=== PATIENT | female | born 1960 | race Caucasian/White ===

== ENCOUNTER 2017-11-14 21:19 | Emergency (ER) | payer OTHER ==
[~2017-11-14] VITALS: Ht 157.5 cm; Wt 90.7 kg
--- NOTE | ~2017-11-14 | EKG ---
[place] [address] ELECTROCARDIOGRAM REPORT Name: KAY SIFUENTES [id number] Admission: 11/14/17 Attend Phys: Discharge: 11/14/17 Date of : 58 Report #: [id number] THIS REPORT FOR: //name// [facility] ED Test Date: 2017-11-14 Test Time: 21:49:45 Pat Name: KAY SIFUENTES Department: Room: Gender: F Ceramic Research Engineer: HOA Jang : 1960 Requested By: Marisa Sharma Order Number: [id number] MD: Measurements Intervals [place] Rate: 103 P: 23 NM: 135 QRS: 39 QRSD: 78 T: 3 QT: 326 QTc: 427 Interpretive Statements Sinus tachycardia Consider right atrial enlargement Compared to ECG 10/21/2017 03:53:14 Sinus rhythm no longer present T-wave abnormality no longer present [email or web address] By: [id number] Epiphany EpiphanyMD /EPI
[~2017-11-14 21:19] MED LIST: ACETAMINOPHEN500 M1 PO; AMBIEN 5 MG TABL5 M1 PO; AMITRIPTYLINE H25 M2 PO; AMITRIPTYLINE H50 M4 PO; ANASPAZ0.125 MG SL; APAP500 PO; CYMBALTA60 MG PO; EPIPEN 2-P0.3 MG/0.3 IM; HYDROCHLOROTHIA25 M2 PO; ONDANSETRON HCL4 M2 PO; ONDANSETRON ODT4 MG; OXYCODONE HCL 55 MG PO; OXYCODONE HCL5 MG PO; OXYCONTIN10 M1 PO; PERCOCET 5-3251 EACH PO; PREDNISONE50 MG PO; PROTONIX40 M1 PO; PROZAC20 MG PO; TOPROL XL50 MG PO; TRANSDERM-SCOP1 EACH TRANSDERM; TRAZODONE HCL100 MG PO; ZANAFLEX4 MG PO
[2017-11-14] MEDS ORDERED: ATIVAN1 MG PO (21:35)
[2017-11-14 21:55] LABS: ABSOLUTE BASOPHILS 0.2 thou/uL (0.0-0.2); ABSOLUTE EOSINOPHILS 0.1 thou/uL (0.0-0.7); ABSOLUTE LYMPHOCYTES 2.5 thou/uL (0.8-5.3); ABSOLUTE MONOCYTES 0.7 thou/uL (0.0-1.2); ABSOLUTE NEUTROPHILS 9.1 thou/uL (1.6-8.1); BASOPHILS 1.2 %; EOSINOPHILS 0.8 %; HEMATOCRIT 47.3 % (37.0-47.0); MCH 29.9 pg (26.0-34.0); MCHC 33.7 g/dL (28.0-37.0); MCV 88.7 fL (80.0-100.0); MONOCYTES 5.9 %; NUCLEATED RBCS 0 /100WBC; PLATELET COUNT* 584 thou/uL (150-400); POLYS 72.1 %; RBC 5.33 mil/uL (4.20-5.00); RDW-CV 13.8 % (10.5-14.5); WBC 12.6 thou/uL (4.0-11.0)
[2017-11-14 22:00] LABS: ANION GAP 14 mmol/L (7-16); BUN 32 mg/dL (7-18); CALCIUM 10.4 mg/dL (8.5-10.1); CHLORIDE 98 mmol/L (98-107); CO2 28 mmol/L (21-32); CREATININE 1.4 mg/dL (0.6-1.3); GLUCOSE 212 mg/dL (70-99); POTASSIUM 3.9 mmol/L (3.5-5.1); SODIUM 140 mmol/L (136-145)
[2017-11-14 22:07] LABS: ALBUMIN 4.3 g/dL (3.4-5.0); ALKALINE PHOSPHATASE 172 U/L (46-116); LIPASE 96 U/L (73-393); SGOT 14 U/L (15-37); SGPT 26 U/L (30-65); TOTAL BILIRUBIN 0.4 mg/dL (<0.1-1.0); TROPONIN-I LEVEL <0.06 ng/mL (<0.06)
[2017-11-14 23:23] LABS: URINE BILIRUBIN NEGATIVE (Negative); URINE BLOOD NEGATIVE (Negative); URINE CLARITY CLEAR; URINE COLOR YELLOW; URINE GLUCOSE-RANDOM NEGATIVE (Negative); URINE KETONES NEGATIVE (Negative); URINE NITRITE-REFLEX NEGATIVE (Negative); URINE PROTEIN NEGATIVE (Negative); URINE SPECIFIC GRAVITY >= 1.030 (1.005-1.030); URINE UROBILINOGEN 0.2 E.U./dl (0.2-1.0)
[2017-11-14 23:24] LABS: URINE LEUKOCYTES-REFLEX 2+ (Negative)
[2017-11-14] MEDS ORDERED: PHENERGAN 25 MG25 M1 PO (23:34)
[2017-11-14] MEDS ORDERED: PHENERGAN25 M1 RECTAL (23:34)
[2017-11-14 23:41] LABS: CASTS None Seen /LPF (None Seen); CRYSTALS None Seen /LPF (None Seen); MUCUS 0-3 Light strn/LPF (None Seen); SQUAMOUS >10 Many /LPF (0-3)
[2017-11-14 23:42] LABS: URINE RBC None Seen /HPF (0-2)
[2017-11-14 23:48] VITALS: BP 129/63
== END 2017-11-14 23:49 | disposition home or self-care (01) ==
LOC: M.ERS 21:19
PROVIDERS: Personal Emergency Response Attendant
DX: K83.4 Spasm of sphincter of Oddi (principal); F32.9 Major depressive disorder, single episode, unspecified; E11.9 Type 2 diabetes mellitus without complications; E78.5 Hyperlipidemia, unspecified; Z90.49 Acquired absence of other specified parts of digestive tract; Z88.8 Allergy status to other drugs, medicaments and biological substances

== ENCOUNTER 2017-11-16 12:26 | Emergency (ER) | payer OTHER ==
[~2017-11-16] VITALS: Ht 157.5 cm; Wt 90.7 kg
[~2017-11-16 12:26] MED LIST changes: +ATIVAN1 MG PO; +PHENERGAN 25 MG25 M1 PO; +PHENERGAN25 M1 RECTAL
[2017-11-16 12:53] LABS: ABSOLUTE BASOPHILS 0.1 thou/uL (0.0-0.2); ABSOLUTE LYMPHOCYTES 1.6 thou/uL (0.8-5.3); ABSOLUTE MONOCYTES 0.3 thou/uL (0.0-1.2); ABSOLUTE NEUTROPHILS 9.8 thou/uL (1.6-8.1); BASOPHILS 0.8 %; EOSINOPHILS 0.4 %; HEMATOCRIT 44.7 % (37.0-47.0); LYMPHOCYTES 13.6 %; MCH 29.7 pg (26.0-34.0); MCHC 33.5 g/dL (28.0-37.0); MCV 88.7 fL (80.0-100.0); MONOCYTES 2.7 %; MPV 6.8 fl. (7.2-11.1); NUCLEATED RBCS 0 /100WBC; POLYS 82.5 %; RBC 5.04 mil/uL (4.20-5.00); RDW-CV 13.8 % (10.5-14.5); WBC 11.9 thou/uL (4.0-11.0)
[2017-11-16 12:54] LABS: PLATELET COUNT* 509 thou/uL (150-400)
[2017-11-16 13:03] LABS: ANION GAP 11 mmol/L (7-16); BUN 18 mg/dL (7-18); CALCIUM 10.1 mg/dL (8.5-10.1); CHLORIDE 98 mmol/L (98-107); CO2 29 mmol/L (21-32); CREATININE 1.1 mg/dL (0.6-1.3); GLUCOSE 214 mg/dL (70-99); POTASSIUM 3.8 mmol/L (3.5-5.1); SODIUM 138 mmol/L (136-145)
[2017-11-16 13:10] LABS: ALBUMIN 3.9 g/dL (3.4-5.0); ALKALINE PHOSPHATASE 134 U/L (46-116); LIPASE 80 U/L (73-393); SGOT 17 U/L (15-37); SGPT 25 U/L (30-65); TOTAL BILIRUBIN 0.5 mg/dL (<0.1-1.0); TOTAL PROTEIN 8.5 g/dL (6.4-8.2); TROPONIN-I LEVEL <0.06 ng/mL (<0.06)
[2017-11-16 15:12] LABS: URINE BILIRUBIN NEGATIVE (Negative); URINE BLOOD NEGATIVE (Negative); URINE CLARITY CLEAR; URINE COLOR YELLOW; URINE GLUCOSE-RANDOM NEGATIVE (Negative); URINE KETONES NEGATIVE (Negative); URINE LEUKOCYTES-REFLEX TRACE (Negative); URINE NITRITE-REFLEX NEGATIVE (Negative); URINE PROTEIN NEGATIVE (Negative); URINE UROBILINOGEN 0.2 E.U./dl (0.2-1.0)
[2017-11-16 15:33] LABS: CASTS None Seen /LPF (None Seen); CRYSTALS None Seen /LPF (None Seen); SQUAMOUS >10 Many /LPF (0-3)
[2017-11-16 15:34] LABS: URINE RBC None Seen /HPF (0-2)
[2017-11-16] MEDS ORDERED: BACTRIM DS TAB1 EACH PO (15:42)
[2017-11-16 16:01] VITALS: BP 188/104
--- NOTE | 2017-11-17 15:21 | EKG ---
[place] [address] ELECTROCARDIOGRAM REPORT Name: KAY SIFUENTES Room: [facility]#: [id number] Admission: 11/16/17 Attend Phys: Discharge: 11/16/17 Date of : 58 Report #: [id number] THIS REPORT FOR: //name// [facility] ED Test Date: 2017-11-16 Test Time: 13:03:59 Pat Name: KAY CHENEYARMIN Department: Room: Gender: F Lusterer: Suhail SAMUELS : 1960 Requested By: Jayde Hoffmann Order Number: [id number] MD: Deshawn Guerrero Measurements Intervals [place] Rate: 93 P: 21 PA: 129 QRS: 28 QRSD: 80 T: 2 QT: 371 QTc: 462 Interpretive Statements Sinus rhythm Compared to ECG 11/14/2017 21:49:45 Sinus tachycardia no longer present Electronically Signed On 11-17-2017 15:21:30 [employer] by Deshawn Guerrero [email or web address] <ELECTRONICALLY SIGNED> By: Deshawn Guerrero MD, [facility] 11/17/17 1521 1303 130 Deshawn Guerrero MD, FACC /EPI
[2017-11-17] MEDS ORDERED: PROMS25 WY RECTAL (21:58)
== END 2017-11-16 16:02 | disposition home or self-care (01) ==
LOC: M.ERS 12:26
PROVIDERS: Nurse Practitioner Family
DX: N39.0 Urinary tract infection, site not specified (principal); R11.2 Nausea with vomiting, unspecified; R10.13 Epigastric pain; F32.9 Major depressive disorder, single episode, unspecified; E11.9 Type 2 diabetes mellitus without complications; E78.5 Hyperlipidemia, unspecified; Z90.49 Acquired absence of other specified parts of digestive tract; Z88.8 Allergy status to other drugs, medicaments and biological substances

== ENCOUNTER 2017-11-17 17:44 | Emergency (ER) | payer OTHER ==
[~2017-11-17] VITALS: Ht 157.5 cm; Wt 90.7 kg
[~2017-11-17 17:44] MED LIST changes: +BACTRIM DS TAB1 EACH PO
[2017-11-17 20:21] LABS: ABSOLUTE BASOPHILS 0.1 thou/uL (0.0-0.2); ABSOLUTE LYMPHOCYTES 1.5 thou/uL (0.8-5.3); ABSOLUTE MONOCYTES 0.4 thou/uL (0.0-1.2); ABSOLUTE NEUTROPHILS 9.5 thou/uL (1.6-8.1); BASOPHILS 0.8 %; EOSINOPHILS 0.1 %; HEMOGLOBIN 14.2 gm/dL (12.0-15.0); LYMPHOCYTES 12.9 %; MCHC 33.9 g/dL (28.0-37.0); MCV 88.5 fL (80.0-100.0); MONOCYTES 3.3 %; MPV 6.7 fl. (7.2-11.1); NUCLEATED RBCS 0 /100WBC; PLATELET COUNT* 462 thou/uL (150-400); POLYS 82.9 %; RBC 4.74 mil/uL (4.20-5.00); RDW-CV 13.7 % (10.5-14.5); WBC 11.4 thou/uL (4.0-11.0)
[2017-11-17 20:31] LABS: CALCIUM 9.3 mg/dL (8.5-10.1); CREATININE 1.2 mg/dL (0.6-1.3); POTASSIUM 3.7 mmol/L (3.5-5.1)
[2017-11-17 20:35] LABS: TOTAL BILIRUBIN 0.7 mg/dL (<0.1-1.0); TOTAL PROTEIN 8.2 g/dL (6.4-8.2)
[2017-11-17] MEDS ORDERED: PROMS25 WY RECTAL (21:58)
[2017-11-17 22:33] LABS: URINE BILIRUBIN NEGATIVE (Negative); URINE BLOOD NEGATIVE (Negative); URINE CLARITY CLEAR; URINE COLOR YELLOW; URINE GLUCOSE-RANDOM NEGATIVE (Negative); URINE KETONES NEGATIVE (Negative); URINE LEUKOCYTES-REFLEX 1+ (Negative); URINE NITRITE-REFLEX NEGATIVE (Negative); URINE PROTEIN NEGATIVE (Negative); URINE SPECIFIC GRAVITY >= 1.030 (1.005-1.030); URINE UROBILINOGEN 0.2 E.U./dl (0.2-1.0)
[2017-11-17 22:40] VITALS: BP 190/112
[2017-11-17 23:03] LABS: BACTERIA-REFLEX 1-9 Few /HPF (None Seen); CRYSTALS None Seen /LPF (None Seen); HYALINE CASTS 0-3 Few /LPF (None Seen); SQUAMOUS >10 Many /LPF (0-3); URINE RBC 0-2 Rare /HPF (0-2); URINE WBC-REFLEX 6-15 Few /HPF (0-5)
== END 2017-11-17 22:42 | disposition home or self-care (01) ==
LOC: M.ERS 17:44
PROVIDERS: Physician Assistant
DX: R11.2 Nausea with vomiting, unspecified (principal)

== ENCOUNTER 2018-02-09 04:17 | Inpatient (IN) | payer OTHER ==
[~2018-02-09] VITALS: Ht 157.5 cm; Wt 93.4 kg
[2018-02-09] VITALS (11 sets, daily range): BP systolic 125–194; BP diastolic 88–114
[~2018-02-09 04:17] MED LIST changes: +PROMS25 WY RECTAL
[2018-02-09] MEDS ORDERED: HYOSCYAMINE0.125 M2 (04:30)
[2018-02-09] MEDS ORDERED: ZANAFLEX4 MG (04:32)
[2018-02-09 05:10] LABS: ABSOLUTE BASOPHILS 0.1 thou/uL (0.0-0.2); ABSOLUTE EOSINOPHILS 0.1 thou/uL (0.0-0.7); ABSOLUTE LYMPHOCYTES 2.5 thou/uL (0.8-5.3); ABSOLUTE MONOCYTES 1.2 thou/uL (0.0-1.2); ABSOLUTE NEUTROPHILS 10.3 thou/uL (1.6-8.1); BASOPHILS 0.6 %; EOSINOPHILS 0.9 %; HEMATOCRIT 39.4 % (37.0-47.0); HEMOGLOBIN 13.6 gm/dL (12.0-15.0); LYMPHOCYTES 17.5 %; MCH 30.1 pg (26.0-34.0); MCHC 34.6 g/dL (28.0-37.0); MONOCYTES 8.3 %; MPV 7.3 fl. (7.2-11.1); NUCLEATED RBCS 0 /100WBC; PLATELET COUNT* 504 thou/uL (150-400); POLYS 72.7 %; RBC 4.53 mil/uL (4.20-5.00); RDW-CV 13.8 % (10.5-14.5); WBC 14.2 thou/uL (4.0-11.0)
[2018-02-09 05:13] LABS: CALCIUM 9.5 mg/dL (8.5-10.1); CREATININE 1.1 mg/dL (0.6-1.3); POTASSIUM 3.9 mmol/L (3.5-5.1)
[2018-02-09 05:17] LABS: ALBUMIN 3.8 g/dL (3.4-5.0); TOTAL BILIRUBIN 0.6 mg/dL (<0.1-1.0); TOTAL PROTEIN 7.9 g/dL (6.4-8.2)
[2018-02-09 10:55] LABS: AMP/METHAMP Negative (Negative); BARBITURATES Negative (Negative); BENZODIAZEPINES Negative (Negative); COCAINE Negative (Negative); METHADONE Negative (Negative); OPIATES Negative (Negative); PCP Negative (Negative); THC Negative (Negative)
--- NOTE | 2018-02-09 10:58 | NUR ---
SW met with pt to complete initial assessment, introduce self, and SW role. Pt alert, oriented, pleasant. Pt lives at home with her and also has family and friends; good support system. Pt expressed feeling safe at home and that she did not anticipate any dc needs. SW to remain available if needed.
--- NOTE | 2018-02-09 15:55 | NUR ---
PATIENT ADMITTED THIS AM FROM ER. ALERT AND ORIENTED X 4. PATIENT GIVEN PRN FENTANYL X 1 FOR NECK PAIN AND OXY IR X 1 FOR NECK PAIN. HYDRALAZINE GIVEN X 1 THIS SHIFT FOR ELEVATED BLOOD PRESSURE. DR. ORGERS NOTIFIED THIS AFTERNOON OF ELEVATED HR, NS BOLUS GIVEN ORDERED. UP AD FRANSISCO. GI CONSULTED AND CLEAR DIET ORDERED. TOLERATING AT THIS TIME.
--- NOTE | 2018-02-09 17:34 | NUR ---
ASSUMED CARE OF PATIENT AT 1545. REPORT RECEIVED FROM ABRAM. PATIENT DENIES ANY ABDOMINAL PAIN, HAS MILD NECK PAIN TREATED ADEQUATELY WITH MEDICATION. PATIENT'S BLOOD PRESSURE AND PULSE HAS BEEN ELEVATED, HYDRALAZINE GIVEN ORDERED. PATIENT IS UP AD FRANSISCO IN ROOM AND HAS BEEN UP IN CHAIR. PATIENT DENIES ANY NEEDS AT THIS TIME. CALL LIGHT WITHIN REACH. WILL CONTINUE TO MONITOR.
[2018-02-10] VITALS: BP 152/99
[2018-02-10 04:34] LABS: CALCIUM 9.2 mg/dL (8.5-10.1); CREATININE 0.9 mg/dL (0.6-1.3); POTASSIUM 4.5 mmol/L (3.5-5.1)
[2018-02-10 05:05] LABS: ABSOLUTE BASOPHILS 0.1 thou/uL (0.0-0.2); ABSOLUTE EOSINOPHILS 0.1 thou/uL (0.0-0.7); ABSOLUTE LYMPHOCYTES 2.4 thou/uL (0.8-5.3); ABSOLUTE MONOCYTES 1.1 thou/uL (0.0-1.2); ABSOLUTE NEUTROPHILS 8.1 thou/uL (1.6-8.1); BASOPHILS 0.8 %; EOSINOPHILS 0.6 %; HEMATOCRIT 39.1 % (37.0-47.0); HEMOGLOBIN 13.2 gm/dL (12.0-15.0); LYMPHOCYTES 20.3 %; MCH 29.6 pg (26.0-34.0); MCHC 33.8 g/dL (28.0-37.0); MCV 87.6 fL (80.0-100.0); MONOCYTES 9.2 %; MPV 7.5 fl. (7.2-11.1); NUCLEATED RBCS 0 /100WBC; PLATELET COUNT* 521 thou/uL (150-400); POLYS 69.1 %; RBC 4.46 mil/uL (4.20-5.00); RDW-CV 14.7 % (10.5-14.5); WBC 11.7 thou/uL (4.0-11.0)
--- NOTE | 2018-02-10 05:16 | NUR ---
PATIENT SLEPT WELL DURING THIS SHIFT. PT UP AD FRANSISCO IN HALLWAYS. PT SHOWERED AT BEGINNING OF SHIFT. PT WITH FLUIDS INFUSING PER DR ORDER. PT GIVEN PO PAIN MEDICATION FOR CHRONIC NECK PAIN. PT DENIES NEEDS AT THIS TIME. FREQUENTLY USED ITEMS AND CALL LIGHT WITHIN REACH. SIDERAILS UPX2. WILL CONTINUE TO MONITOR.
[2018-02-10 06:02] VITALS: BP 189/107
[2018-02-10 07:30] VITALS: BP 148/81
[2018-02-10 12:14] VITALS: BP 148/81
[2018-02-10] MEDS ORDERED: NORVASC10 MG PO (12:25)
[2018-02-10 13:00] VITALS: BP 158/98
--- NOTE | 2018-02-10 14:00 | NUR ---
PATIENT DISCHARGED TO HOME. DISCHARGE PAPERS REVIEWED AND SIGNED. PRESCRIPTION AND INFORMATION SHEETS GIVEN. IV REMOVED. PATIENT DENIES ANY FURTHER NEEDS. PATIENT TAKEN AMBULATORY TO EXIT. LEFT WITH .
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
--- NOTE | 2018-02-17 15:14 | CON ---
[address] [address] CONSULTATION Name: KAY SIFUENTES Room: [address] IN M.R.#: [id number] Admission: 02/09/18 Attend Phys: Komal Mcintyre MD Discharge: 02/10/18 Date of : 58 Report #: [id number] THIS REPORT FOR: //name// CC: Damaris Mcintyre Montrell Vladimir DATE OF SERVICE: 02/09/2018 ADDENDUM This is an addendum to job #[id number] REFERRING PHYSICIAN: Dr. Komal Mcintyre. DISCUSSION: I have seen and examined the patient and agree with plan that has been outlined by our nurse practitioner, Cassandra Galvez. Because of her history of recurrent pancreatitis and the like, she may not be needing to be referred back to Dr. Gilbert for possible biliary manometry and possible biliary sphincterotomy. I am hesitant to do so at this point in time without elevated liver function test and the like. We will follow the patient and make further recommendations during hospital course. <ELECTRONICALLY SIGNED> By: Mayco Anna DO 02/17/18 1514 0857 1419Mayco Anna DO /nt
--- NOTE | 2018-03-07 15:01 | CON ---
[address] [address] CONSULTATION Name: KAY SIFUENTES Room: [address] IN M.R.#: [id number] Admission: 02/09/18 Attend Phys: Komal Mcintyre MD Discharge: 02/10/18 Date of : 58 Report #: [id number] THIS REPORT FOR: //name// CC: Damaris Mcintyre DATE OF SERVICE: 02/09/2018 ADDENDUM The patient with intermittent symptoms of nausea, vomiting and abdominal pain, who also had leukocytosis. She has history of sphincter of Oddi dysfunction and usually this happens to her after a few months. She reports that once it happened to her after eating a big meal and another time, she was fasting for 8 hours. Based on her gastric emptying test, she has tachygastria. I believe that she most probably has a diagnosis of cyclic vomiting syndrome, which fits her criteria more. She will come to the office and see me for further evaluation in this regard. The patient is currently being discharged. <ELECTRONICALLY SIGNED> By: Wayne Velasquez MD 03/07/18 1501 1358 1439Wayne Velasquez MD /nt
== END 2018-02-10 14:00 | disposition home or self-care (01) | DRG 439 ==
LOC: M.ERS 04:17 → M.3W 05:52 → M.TBA-ER 05:52 → M.3W 06:34
PROVIDERS: Family Medicine; Internal Medicine; ADMIT Internal Medicine
DX: K85.90 Acute pancreatitis without necrosis or infection, unspecified (principal); R65.10 Systemic inflammatory response syndrome (SIRS) of non-infectious origin without acute organ dysfunction; I16.1 Hypertensive emergency; I10 Essential (primary) hypertension; E11.9 Type 2 diabetes mellitus without complications; E86.0 Dehydration; G89.29 Other chronic pain; K83.4 Spasm of sphincter of Oddi; F41.9 Anxiety disorder, unspecified; E78.5 Hyperlipidemia, unspecified; F32.9 Major depressive disorder, single episode, unspecified; Z87.828 Personal history of other (healed) physical injury and trauma; Z90.49 Acquired absence of other specified parts of digestive tract; Z88.8 Allergy status to other drugs, medicaments and biological substances

== ENCOUNTER 2018-04-28 12:27 | Inpatient (IN) | payer OTHER ==
[~2018-04-28] VITALS: Ht 157.5 cm; Wt 96.2 kg
[~2018-04-28 12:27] MED LIST changes: +HYOSCYAMINE0.125 M2; +NORVASC10 MG PO; +ZANAFLEX4 MG
[2018-04-28 13:32] LABS: ABSOLUTE BASOPHILS 0.1 thou/uL (0.0-0.2); ABSOLUTE EOSINOPHILS 0.1 thou/uL (0.0-0.7); ABSOLUTE LYMPHOCYTES 1.8 thou/uL (0.8-5.3); ABSOLUTE MONOCYTES 0.6 thou/uL (0.0-1.2); ABSOLUTE NEUTROPHILS 7.8 thou/uL (1.6-8.1); BASOPHILS 1.3 %; EOSINOPHILS 0.5 %; HEMATOCRIT 41.2 % (37.0-47.0); LYMPHOCYTES 17.5 %; MCH 29.5 pg (26.0-34.0); MCV 86.7 fL (80.0-100.0); MONOCYTES 6.1 %; MPV 7.5 fl. (7.2-11.1); NUCLEATED RBCS 0 /100WBC; PLATELET COUNT* 492 thou/uL (150-400); POLYS 74.6 %; RBC 4.76 mil/uL (4.20-5.00); RDW-CV 13.7 % (10.5-14.5); WBC 10.4 thou/uL (4.0-11.0)
[2018-04-28 13:37] LABS: INR 1.1; PROTIME 10.3 Seconds (9.20-11.50)
[2018-04-28 13:42] LABS: ANION GAP 14 mmol/L (7-16); CHLORIDE 98 mmol/L (98-107); CO2 25 mmol/L (21-32); POTASSIUM 3.8 mmol/L (3.5-5.1); SODIUM 137 mmol/L (136-145); TOTAL PROTEIN 8.8 g/dL (6.4-8.2)
[2018-04-28 13:49] LABS: BUN 23 mg/dL (7-18); CALCIUM 10.3 mg/dL (8.5-10.1); GLUCOSE 179 mg/dL (70-99)
[2018-04-28 14:05] LABS: SGOT 33 U/L (15-37)
[2018-04-28 14:06] LABS: ALBUMIN 4.3 g/dL (3.4-5.0); ALKALINE PHOSPHATASE 158 U/L (46-116); LIPASE 66 U/L (73-393); SGPT 36 U/L (30-65); TOTAL BILIRUBIN 0.8 mg/dL (<0.1-1.0); TROPONIN-I LEVEL <0.06 ng/mL (<0.06)
[2018-04-28 14:31] LABS: URINE BILIRUBIN NEGATIVE (Negative); URINE BLOOD NEGATIVE (Negative); URINE CLARITY CLEAR; URINE COLOR YELLOW; URINE GLUCOSE-RANDOM NEGATIVE (Negative); URINE KETONES NEGATIVE (Negative); URINE LEUKOCYTES 2+ (Negative); URINE NITRITE NEGATIVE (Negative); URINE PROTEIN NEGATIVE (Negative); URINE SPECIFIC GRAVITY 1.025 (1.005-1.030); URINE UROBILINOGEN 0.2 E.U./dl (0.2-1.0)
[2018-04-28 14:40] LABS: AMP/METHAMP Negative (Negative); BARBITURATES Negative (Negative); BENZODIAZEPINES Negative (Negative); COCAINE Negative (Negative); METHADONE Negative (Negative); OPIATES Negative (Negative); PCP Negative (Negative); THC Negative (Negative)
[2018-04-28 14:42] LABS: BACTERIA 1-9 Few /HPF (None Seen); CASTS None Seen /LPF (None Seen); SQUAMOUS >10 Many /LPF (0-3); URINE RBC 3-10 Few /HPF (0-2); URINE WBC >25 Many /HPF (0-5)
[2018-04-28 14:43] LABS: CRYSTALS None Seen /LPF (None Seen)
--- NOTE | 2018-04-28 15:20 | EKG ---
[place] [address] ELECTROCARDIOGRAM REPORT Name: KAY SIFUENTES Room: [facility]#: [id number] Admission: 04/28/18 Attend Phys: Discharge: Date of : 58 Report #: [id number] THIS REPORT FOR: //name// [facility] ED Test Date: 2018-04-28 Test Time: 13:24:53 Pat Name: KAY CHENEYARMIN Department: Room: Gender: F Clinical Data Analyst: Suhail SAMUELS : 1960 Requested By: Nayeli Choudhary Order Number: [id number] MD: Leonard Arriaga Measurements Intervals [place] Rate: 101 P: 41 TN: 131 QRS: 56 QRSD: 79 T: 20 QT: 352 QTc: 457 Interpretive Statements Sinus tachycardia Baseline wander in lead(s) II,aVR Compared to ECG 11/16/2017 13:03:59 Sinus rhythm no longer present Electronically Signed On 04-28-2018 15:19:47 CDT by Leonard Arriaga [email or web address] <ELECTRONICALLY SIGNED> By: Leonard Arriaga MD, [facility] 04/28/18 1519 132 23 Leonard Arriaga MD, [facility] /EPI
[2018-04-28 19:34] VITALS: BP 193/99
[2018-04-28 20:30] VITALS: BP 178/104
[2018-04-29 07:40] VITALS: BP 142/70
[2018-04-29 23:00] VITALS: BP 191/103
[2018-04-30 00:51] VITALS: BP 206/103
[2018-04-30 03:58] LABS: HEMATOCRIT 42.9 % (37.0-47.0); HEMOGLOBIN 14.3 gm/dL (12.0-15.0); MCH 29.5 pg (26.0-34.0); MCHC 33.2 g/dL (28.0-37.0); MCV 88.6 fL (80.0-100.0); MPV 7.9 fl. (7.2-11.1); RBC 4.84 mil/uL (4.20-5.00); WBC 9.3 thou/uL (4.0-11.0)
[2018-04-30 04:06] LABS: CALCIUM 8.9 mg/dL (8.5-10.1); MAGNESIUM 2.1 mg/dL (1.8-2.4); POTASSIUM 3.1 mmol/L (3.5-5.1); TOTAL PROTEIN 8.1 g/dL (6.4-8.2)
[2018-04-30 04:48] VITALS: BP 189/98
[2018-04-30 08:15] VITALS: BP 160/100
[2018-04-30 16:00] VITALS: BP 144/81
[2018-04-30 23:02] VITALS: BP 136/80
[2018-05-01 04:05] LABS: HEMATOCRIT 36.9 % (37.0-47.0); HEMOGLOBIN 12.4 gm/dL (12.0-15.0); MCH 29.7 pg (26.0-34.0); MCHC 33.4 g/dL (28.0-37.0); MCV 88.7 fL (80.0-100.0); MPV 7.5 fl. (7.2-11.1); RBC 4.16 mil/uL (4.20-5.00); RDW-CV 14.2 % (10.5-14.5); WBC 6.2 thou/uL (4.0-11.0)
[2018-05-01 04:20] LABS: CALCIUM 8.7 mg/dL (8.5-10.1); POTASSIUM 3.9 mmol/L (3.5-5.1)
[2018-05-01 08:10] VITALS: BP 122/78
[2018-05-01] MEDS ORDERED: CO Q-10100 MG PO (14:40)
[2018-05-01] MEDS ORDERED: AMITRIPTYLINE H25 M2 PO (14:40)
[2018-05-01] MEDS ORDERED: BENTYL 20 MG TA20 M1 PO (14:41)
[2018-05-01] MEDS ORDERED: SCOPOLAMINE1 EACH PO (14:42)
[2018-05-01 15:22] VITALS: BP 122/78
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
== END 2018-05-01 15:50 | disposition home or self-care (01) | DRG 103 ==
LOC: M.ERS 12:27 → M.TBA-ER 18:22 → M.3W 18:22
PROVIDERS: Physician Assistant; ADMIT Internal Medicine
DX: G43.A1 Cyclical vomiting, in migraine, intractable (principal); K31.89 Other diseases of stomach and duodenum; K58.9 Irritable bowel syndrome, unspecified; I10 Essential (primary) hypertension; F32.9 Major depressive disorder, single episode, unspecified; E11.9 Type 2 diabetes mellitus without complications; E78.5 Hyperlipidemia, unspecified; E66.9 Obesity, unspecified; E78.00 Pure hypercholesterolemia, unspecified; G89.29 Other chronic pain; M54.2 Cervicalgia; Z90.49 Acquired absence of other specified parts of digestive tract; Z88.8 Allergy status to other drugs, medicaments and biological substances; Z98.890 Other specified postprocedural states; Z68.38 Body mass index [BMI] 38.0-38.9, adult; Z79.2 Long term (current) use of antibiotics; Z79.899 Other long term (current) drug therapy

== ENCOUNTER 2018-05-03 07:17 | Emergency (ER) | payer OTHER ==
[~2018-05-03] VITALS: Ht 157.5 cm; Wt 90.7 kg
[~2018-05-03 07:17] MED LIST changes: +BENTYL 20 MG TA20 M1 PO; +CO Q-10100 MG PO; +SCOPOLAMINE1 EACH PO
[2018-05-03] MEDS ORDERED: TRANSDERM-SCOP1 EACH TRANSDERM (07:35)
[2018-05-03 07:41] VITALS: BP 191/101
== END 2018-05-03 07:44 | disposition home or self-care (01) ==
LOC: M.ERS 07:17
DX: R11.2 Nausea with vomiting, unspecified (principal); I10 Essential (primary) hypertension; F32.9 Major depressive disorder, single episode, unspecified; E11.9 Type 2 diabetes mellitus without complications; E78.5 Hyperlipidemia, unspecified; Z88.8 Allergy status to other drugs, medicaments and biological substances; Z90.49 Acquired absence of other specified parts of digestive tract

== ENCOUNTER 2018-07-25 14:53 | Inpatient (IN) | payer OTHER ==
[~2018-07-25] VITALS: Ht 157.5 cm; Wt 98.9 kg
[2018-07-25 15:02] VITALS: BP 160/118
[2018-07-25] MEDS ORDERED: TYLENOL325 MG PO (15:07)
[2018-07-25] MEDS ORDERED: ONDANSETRON HCL4 M2 PO (15:08)
[2018-07-25] MEDS ORDERED: PHENERGAN 25 MG25 M1 PO (15:08)
[2018-07-25 15:36] LABS: URINE BILIRUBIN NEGATIVE (Negative); URINE BLOOD TRACE (Negative); URINE COLOR YELLOW; URINE GLUCOSE-RANDOM NEGATIVE (Negative); URINE KETONES NEGATIVE (Negative); URINE NITRITE-REFLEX NEGATIVE (Negative); URINE PROTEIN TRACE (Negative); URINE UROBILINOGEN 0.2 E.U./dl (0.2-1.0)
[2018-07-25 15:37] LABS: URINE CLARITY HAZY; URINE LEUKOCYTES-REFLEX 2+ (Negative)
[2018-07-25 15:46] LABS: BACTERIA-REFLEX >30 Many /HPF (None Seen); CASTS None Seen /LPF (None Seen); CRYSTALS None Seen /LPF (None Seen); SQUAMOUS >10 Many /LPF (0-3); URINE RBC 0-2 Rare /HPF (0-2); URINE WBC-REFLEX >25 Many /HPF (0-5)
[2018-07-25 16:04] LABS: AMP/METHAMP Negative (Negative); BARBITURATES Negative (Negative); BENZODIAZEPINES Negative (Negative); COCAINE Negative (Negative); METHADONE Negative (Negative); OPIATES Negative (Negative); PCP Negative (Negative); THC Negative (Negative)
[2018-07-25 16:18] LABS: HEMATOCRIT 40.9 % (37.0-47.0); HEMOGLOBIN 13.6 gm/dL (12.0-15.0); MCHC 33.3 g/dL (28.0-37.0); MCV 87.2 fL (80.0-100.0); MPV 7.2 fl. (7.2-11.1); NUCLEATED RBCS 0 /100WBC; PLATELET COUNT* 432 thou/uL (150-400); RBC 4.69 mil/uL (4.20-5.00); RDW-CV 14.2 % (10.5-14.5); WBC 19.7 thou/uL (4.0-11.0)
[2018-07-25 16:27] LABS: ANION GAP 15 mmol/L (7-16); BUN 29 mg/dL (7-18); CHLORIDE 99 mmol/L (98-107); CO2 23 mmol/L (21-32); CREATININE 1.7 mg/dL (0.6-1.3); GLUCOSE 106 mg/dL (70-99); POTASSIUM 3.4 mmol/L (3.5-5.1); SODIUM 137 mmol/L (136-145)
[2018-07-25 16:29] LABS: ALBUMIN 3.8 g/dL (3.4-5.0); LIPASE 148 U/L (73-393)
[2018-07-25 16:37] LABS: SALICYLATE < 2.8 mg/dL (2.8-20.0)
[2018-07-25 16:38] LABS: ACETAMINOPHEN < 2 ug/mL (10-30)
[2018-07-25 16:48] LABS: ALKALINE PHOSPHATASE 124 U/L (46-116); SGOT 27 U/L (15-37); SGPT 28 U/L (30-65); TOTAL BILIRUBIN 0.4 mg/dL (<0.1-1.0); TROPONIN-I LEVEL <0.06 ng/mL (<0.06)
[2018-07-25 17:06] LABS: ABSOLUTE LYMPHOCYTES 2.6 thou/uL (0.8-5.3); ABSOLUTE NEUTROPHILS 16.2 thou/uL (1.6-8.1)
[2018-07-25 17:07] LABS: PLATELET ESTIMATE ADEQUATE
[2018-07-25 19:56] VITALS: BP 187/108
[2018-07-25 20:00] VITALS: BP 128/63
[2018-07-25 23:52] VITALS: BP 106/69
[2018-07-26 10:20] VITALS: BP 154/100
[2018-07-26 10:29] LABS: CALCIUM 7.6 mg/dL (8.5-10.1); CREATININE 1.5 mg/dL (0.6-1.3); POTASSIUM 3.1 mmol/L (3.5-5.1); TOTAL BILIRUBIN 0.3 mg/dL (<0.1-1.0); TOTAL PROTEIN 6.8 g/dL (6.4-8.2)
[2018-07-26 16:16] VITALS: BP 144/82
--- NOTE | 2018-07-26 17:00 | EKG ---
[place] [address] ELECTROCARDIOGRAM REPORT Name: KAY SIFUENTES Room: [address] ADM IN .R.#: [id number] Admission: 07/25/18 Attend Phys: Jose Angel Kerr Discharge: Date of : 58 Report #: [id number] THIS REPORT FOR: //name// [facility] ED Test Date: 2018-07-25 Test Time: 15:11:12 Pat Name: KAY SIFUENTES Department: Room: [facility] Gender: F Data Storage Specialist: MONET : 1960 Requested By: Bety Hi Order Number: [id number] MD: Leonard Arriaga Measurements Intervals [place] Rate: 103 P: 41 VA: 194 QRS: 24 QRSD: 82 T: 3 QT: 338 QTc: 443 Interpretive Statements Sinus tachycardia Probable left atrial enlargement Compared to ECG 04/28/2018 13:24:53 No significant changes Electronically Signed On 07-26-2018 17:00:15 CDT by Leonard Arriaga [email or web address] <ELECTRONICALLY SIGNED> By: Leonard Arriaga MD, [facility] 07/26/18 1700 1511 1511 Leonard Arriaga MD, [facility] /EPI
[2018-07-26 20:00] VITALS: BP 175/113
[2018-07-26 23:58] LABS: CALCIUM 7.9 mg/dL (8.5-10.1); CREATININE 1.4 mg/dL (0.6-1.3); MAGNESIUM 1.8 mg/dL (1.8-2.4); POTASSIUM 3.5 mmol/L (3.5-5.1)
[2018-07-27] VITALS: BP 176/86
[2018-07-27 09:10] VITALS: BP 155/95
[2018-07-27 11:25] LABS: ABSOLUTE BASOPHILS 0.1 thou/uL (0.0-0.2); ABSOLUTE EOSINOPHILS 0.3 thou/uL (0.0-0.7); ABSOLUTE LYMPHOCYTES 1.4 thou/uL (0.8-5.3); ABSOLUTE MONOCYTES 0.5 thou/uL (0.0-1.2); ABSOLUTE NEUTROPHILS 3.4 thou/uL (1.6-8.1); BASOPHILS 1.2 %; EOSINOPHILS 4.8 %; HEMATOCRIT 34.5 % (37.0-47.0); LYMPHOCYTES 25.5 %; MCH 29.4 pg (26.0-34.0); MCHC 33.5 g/dL (28.0-37.0); MCV 87.7 fL (80.0-100.0); MONOCYTES 8.7 %; MPV 6.9 fl. (7.2-11.1); NUCLEATED RBCS 0 /100WBC; PLATELET COUNT* 374 thou/uL (150-400); POLYS 59.8 %; RBC 3.94 mil/uL (4.20-5.00); RDW-CV 14.3 % (10.5-14.5); WBC 5.7 thou/uL (4.0-11.0)
[2018-07-27 11:26] LABS: HEMOGLOBIN 11.6 gm/dL (12.0-15.0)
[2018-07-27] MEDS ORDERED: CEFDINIR300 MG PO (11:32)
[2018-07-27] MEDS ORDERED: AMLODIPINE BESYL5 M1 PO (11:32)
[2018-07-27] MEDS ORDERED: AMITRIPTYLINE H25 M2 PO (11:33)
[2018-07-27 11:45] LABS: CALCIUM 8.1 mg/dL (8.5-10.1); CREATININE 1.1 mg/dL (0.6-1.3); POTASSIUM 3.3 mmol/L (3.5-5.1); TOTAL BILIRUBIN 0.3 mg/dL (<0.1-1.0); TOTAL PROTEIN 6.8 g/dL (6.4-8.2)
[2018-07-27 12:07] VITALS: BP 155/95
--- NOTE | 2018-08-11 13:22 | CON ---
[address] [address] CONSULTATION Name: KAY SIFUENTES Room: [address] IN M.R.#: [id number] Admission: 07/25/18 Attend Phys: Jose Angel Kerr Discharge: 07/27/18 Date of : 58 Report #: [id number] THIS REPORT FOR: //name// CC: Damaris Lemon HISTORY OF PRESENT ILLNESS: A pleasant 57-year-old female with past medical history of rapid gastric emptying, nausea and vomiting who is presenting with similar symptoms. The patient is well known to our service and was previously seen on at least 3 of her admissions. The patient was previously diagnosed with rapid gastric emptying and placed on amitriptyline and coenzyme Q for management. The patient reports that she has not been taking amitriptyline, but does take her coenzyme Q, and has been taking promethazine and scopolamine on an as needed basis. The patient reports acute onset of nausea and vomiting. She reports the episode started 3 days back and has continued to this day. She reports epigastric discomfort associated with the nausea and vomiting. She denies any hematemesis, hematochezia or diarrhea. The patient also reports soreness in her throat. The patient denies fevers, chills, new onset rashes, but does report a positive burning while urination. PAST MEDICAL HISTORY: As mentioned above, the patient has a history of rapid gastric emptying. PAST SURGICAL HISTORY: Nonsignificant. FAMILY HISTORY: Reviewed and not significant. SOCIAL HISTORY: The patient denies smoking, alcohol or recreational drug use. REVIEW OF SYSTEMS: A comprehensive 10-point review of systems was performed. This was positive for nausea and vomiting, sore throat, burning micturition. Otherwise, a comprehensive 10-point review of systems is negative. PHYSICAL EXAMINATION: VITAL SIGNS: Temperature 36.7, pulse rate 80, respirations 16, blood pressure 154/100, pulse ox 95%. GENERAL: The patient is alert, awake, oriented x 3. HEENT: Mucous membranes are moist. There is no congestion. LUNGS: Clear to auscultation bilaterally. There is no supraclavicular lymphadenopathy. CARDIOVASCULAR: Rate and rhythm regular. S1, S2 present. ABDOMEN: Soft, no distention, no tenderness, no organomegaly. EXTREMITIES: Warm and well perfused. LABORATORY DATA: Sodium 131, potassium 3.1, chloride 105, bicarbonate 24, BUN 25, creatinine 1.5, total bilirubin 0.3, AST 19, ALT 27, alkaline phosphatase 108, albumin 3. WBC count 19.7, hemoglobin 13.6, hematocrit 40.9, [place] [address] CONSULTATION Name: KAY SIFUENTES Room: [address] IN M.R.#: [id number] Admission: 07/25/18 Attend Phys: Jose Angel Kerr Discharge: 07/27/18 Date of : 58 Report #: [id number] abdomen, fatty infiltration of the liver. There is no CT evidence for acute pancreatitis. No bile duct dilation is noted. Nonobstructing right lower pole renal calculus. Sigmoid diverticulosis without diverticulitis. ASSESSMENT AND PLAN: This is a pleasant 57-year-old female with past medical history of rapid gastric emptying, who presents to the Emergency Room after several days of taking ibuprofen. The patient reports burning micturition and soreness in her throat. The patient was noted to have a WBC count of 19.7. 1. Cyclic vomiting syndrome. I would resume the patient's amitriptyline and I have instructed to take that on a daily basis even after she gets discharged. At least in the last two admissions the patient has failed to continue the medication after going home. Continue Coenzyme Q10 upon discharge b.i.d. Treatment for urinary tract infection and acute kidney injury per primary team. We will follow along. <ELECTRONICALLY SIGNED> By: Miguel Olvera MD 08/11/18 1322 1513 2117Miguel Olvera MD /nt
== END 2018-07-27 12:45 | disposition home or self-care (01) | DRG 682 ==
LOC: M.ERS 14:53 → M.TBA-ER 18:35 → M.ORTHSURG 18:35
PROVIDERS: Nurse Practitioner Family; ADMIT Internal Medicine
DX: N17.0 Acute kidney failure with tubular necrosis (principal); R65.11 Systemic inflammatory response syndrome (SIRS) of non-infectious origin with acute organ dysfunction; N39.0 Urinary tract infection, site not specified; K31.89 Other diseases of stomach and duodenum; I10 Essential (primary) hypertension; F32.9 Major depressive disorder, single episode, unspecified; E11.9 Type 2 diabetes mellitus without complications; E78.5 Hyperlipidemia, unspecified; G89.29 Other chronic pain; R11.10 Vomiting, unspecified; M50.30 Other cervical disc degeneration, unspecified cervical region; Z90.49 Acquired absence of other specified parts of digestive tract; Z88.8 Allergy status to other drugs, medicaments and biological substances; Z79.899 Other long term (current) drug therapy

== ENCOUNTER 2018-09-20 15:13 | Emergency (ER) | payer OTHER ==
[~2018-09-20] VITALS: Ht 157.5 cm; Wt 101.7 kg
[~2018-09-20 15:13] MED LIST changes: +AMLODIPINE BESYL5 M1 PO; +CEFDINIR300 MG PO; +TYLENOL325 MG PO
[2018-09-20 16:34] LABS: ABSOLUTE BASOPHILS 0.1 thou/uL (0.0-0.2); ABSOLUTE EOSINOPHILS 0.4 thou/uL (0.0-0.7); ABSOLUTE LYMPHOCYTES 2.6 thou/uL (0.8-5.3); BASOPHILS 1.2 %; EOSINOPHILS 4.5 %; HEMOGLOBIN 12.8 gm/dL (12.0-15.0); LYMPHOCYTES 28.3 %; MCH 29.4 pg (26.0-34.0); MCHC 33.6 g/dL (28.0-37.0); MCV 87.5 fL (80.0-100.0); MONOCYTES 11.2 %; NUCLEATED RBCS 0 /100WBC; PLATELET COUNT* 435 thou/uL (150-400); POLYS 54.8 %; RBC 4.35 mil/uL (4.20-5.00); RDW-CV 13.7 % (10.5-14.5); WBC 9.1 thou/uL (4.0-11.0)
[2018-09-20 16:41] LABS: ANION GAP 11 mmol/L (7-16); BUN 36 mg/dL (7-18); CALCIUM 9.8 mg/dL (8.5-10.1); CHLORIDE 93 mmol/L (98-107); CO2 27 mmol/L (21-32); CREATININE 1.3 mg/dL (0.6-1.3); GLUCOSE 166 mg/dL (70-99); POTASSIUM 3.2 mmol/L (3.5-5.1); SODIUM 131 mmol/L (136-145)
[2018-09-20 16:51] LABS: ALBUMIN 4.1 g/dL (3.4-5.0); ALKALINE PHOSPHATASE 169 U/L (46-116); LIPASE 263 U/L (73-393); NT-PRO BRAIN NAT PEPTIDE 172 pg/mL (<300); SGOT 24 U/L (15-37); SGPT 33 U/L (30-65); TOTAL BILIRUBIN 0.5 mg/dL (<0.1-1.0); TOTAL PROTEIN 8.7 g/dL (6.4-8.2); TROPONIN-I LEVEL <0.06 ng/mL (<0.06)
[2018-09-20] MEDS ORDERED: POTASSIUM20 PO (17:02)
[2018-09-20] MEDS ORDERED: LASIX 20 MG TAB20 MG PO (17:02)
[2018-09-20 17:27] VITALS: BP 121/89
--- NOTE | 2018-09-21 09:01 | EKG ---
[place] [address] ELECTROCARDIOGRAM REPORT Name: KAY SIFUENTES Room: [facility]#: [id number] Admission: 09/20/18 Attend Phys: Discharge: 09/20/18 Date of : 58 Report #: [id number] THIS REPORT FOR: //name// [facility] ED Test Date: 2018-09-20 Test Time: 15:38:07 Pat Name: KAY SIFUENTES Department: Room: Gender: F Tong Setter: Suhail SAMUELS : 1960 Requested By: Marisa Patel Order Number: [id number] MD: Leonard Arriaga Measurements Intervals [place] Rate: 106 P: 38 CO: 145 QRS: 8 QRSD: 90 T: 16 QT: 355 QTc: 472 Interpretive Statements Sinus tachycardia LAE, consider biatrial enlargement Borderline T wave abnormalities Baseline wander in lead(s) V4 Compared to ECG 07/25/2018 15:11:12 T-wave abnormality now present Electronically Signed On 09-21-2018 9:00:46 FILM LABORATORY TECHNICIAN by Leonard Arriaga [email or web address] <ELECTRONICALLY SIGNED> By: Leonard Arriaga MD, [facility] 09/21/18 0900 1538 1538 Leonard Arriaga MD, [facility] /EPI
== END 2018-09-20 17:28 | disposition home or self-care (01) ==
LOC: M.ERS 15:13
PROVIDERS: Physician Assistant
DX: E87.1 Hypo-osmolality and hyponatremia (principal); E87.6 Hypokalemia; I10 Essential (primary) hypertension; F32.9 Major depressive disorder, single episode, unspecified; E11.9 Type 2 diabetes mellitus without complications; E78.5 Hyperlipidemia, unspecified; G89.29 Other chronic pain; M54.2 Cervicalgia; Z90.49 Acquired absence of other specified parts of digestive tract; Z98.890 Other specified postprocedural states; Z88.8 Allergy status to other drugs, medicaments and biological substances

== ENCOUNTER 2018-12-09 13:56 | Emergency (ER) | payer OTHER ==
[~2018-12-09] VITALS: Ht 157.5 cm; Wt 98.9 kg
[~2018-12-09 13:56] MED LIST changes: +LASIX 20 MG TAB20 MG PO; +POTASSIUM20 PO
[2018-12-09] MEDS ORDERED: VITAMIN D1000 UNI1 PO (14:18)
[2018-12-09 14:52] LABS: ABSOLUTE BASOPHILS 0.1 thou/uL (0.0-0.2); ABSOLUTE EOSINOPHILS 0.2 thou/uL (0.0-0.7); ABSOLUTE LYMPHOCYTES 1.8 thou/uL (0.8-5.3); ABSOLUTE MONOCYTES 0.6 thou/uL (0.0-1.2); ABSOLUTE NEUTROPHILS 5.2 thou/uL (1.6-8.1); BASOPHILS 1.4 %; EOSINOPHILS 2.7 %; HEMATOCRIT 37.1 % (37.0-47.0); HEMOGLOBIN 12.7 gm/dL (12.0-15.0); LYMPHOCYTES 22.8 %; MCH 29.8 pg (26.0-34.0); MCHC 34.2 g/dL (28.0-37.0); MCV 87.3 fL (80.0-100.0); MPV 7.2 fl. (7.2-11.1); NUCLEATED RBCS 0 /100WBC; PLATELET COUNT* 401 thou/uL (150-400); POLYS 65.1 %; RBC 4.26 mil/uL (4.20-5.00); RDW-CV 13.3 % (10.5-14.5); WBC 7.9 thou/uL (4.0-11.0)
[2018-12-09 15:00] LABS: CALCIUM 9.7 mg/dL (8.5-10.1); CREATININE 1.2 mg/dL (0.6-1.3)
[2018-12-09 15:16] LABS: ALBUMIN 3.8 g/dL (3.4-5.0); TOTAL BILIRUBIN 0.5 mg/dL (<0.1-1.0)
[2018-12-09 15:54] LABS: TROPONIN-I LEVEL <0.06 ng/mL (<0.06)
[2018-12-09] MEDS ORDERED: LASIX 20 MG TAB20 MG PO (16:33)
[2018-12-09] MEDS ORDERED: KLOR-CON 10 ER10 MEQ PO (16:33)
[2018-12-09 16:55] VITALS: BP 138/83
--- NOTE | 2018-12-10 08:58 | EKG ---
[place] [address] ELECTROCARDIOGRAM REPORT Name: [facility]AY [facility]UENTES [id number] Admission: 12/09/18 Attend Phys: Discharge: 12/09/18 Date of : 58 Report #: [id number] THIS REPORT FOR: //name// [facility] ED Test Date: 2018-12-09 Test Time: 16:16:25 Pat Name: KAY CHENEYARMIN Department: Room: Gender: F Program Services Planner: EMS STUD : 1960 Requested By: Melissa Mi Order Number: [id number] MD: Leonard Arriaga Measurements Intervals [place] Rate: 108 P: 39 [place]: 174 QRS: 18 QRSD: 84 T: 19 QT: 351 QTc: 471 Interpretive Statements Sinus tachycardia Probable left atrial enlargement Borderline T wave abnormalities Baseline wander in lead(s) V5 Compared to ECG 09/20/2018 15:38:07 No significant changes Electronically Signed On 12-10-2018 8:58:31 FIRE ALARM REPAIRER by Leonard Arriaga [email or web address] <ELECTRONICALLY SIGNED> By: Leonard Arriaga MD, [facility] 12/10/18 0858 1616 15 Leonard Arriaga MD, [facility] /EPI
== END 2018-12-09 16:57 | disposition home or self-care (01) ==
LOC: M.ERS 13:56
PROVIDERS: Nurse Practitioner
DX: R60.0 Localized edema (principal); R91.1 Solitary pulmonary nodule; F32.9 Major depressive disorder, single episode, unspecified; E11.9 Type 2 diabetes mellitus without complications; E78.5 Hyperlipidemia, unspecified; G89.29 Other chronic pain; M54.2 Cervicalgia; Z90.49 Acquired absence of other specified parts of digestive tract; Z88.8 Allergy status to other drugs, medicaments and biological substances

== ENCOUNTER 2019-01-01 19:14 | Inpatient (IN) | payer OTHER ==
[~2019-01-01] VITALS: Ht 157.5 cm; Wt 102.1 kg
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
[~2019-01-01 19:14] MED LIST changes: +KLOR-CON 10 ER10 MEQ PO; +VITAMIN D1000 UNI1 PO
[2019-01-01 19:24] VITALS: BP 165/79
[2019-01-01 20:15] LABS: HEMATOCRIT 42.4 % (37.0-47.0); HEMOGLOBIN 14.4 gm/dL (12.0-15.0); MCHC 33.9 g/dL (28.0-37.0); MCV 88.4 fL (80.0-100.0); NUCLEATED RBCS 0 /100WBC; PLATELET COUNT* 579 thou/uL (150-400); RBC 4.79 mil/uL (4.20-5.00); RDW-CV 14.4 % (10.5-14.5); WBC 16.7 thou/uL (4.0-11.0)
[2019-01-01 20:26] LABS: ANION GAP 16 mmol/L (7-16); APTT 26.9 Seconds (25.0-31.3); BUN 17 mg/dL (7-18); CALCIUM 10.1 mg/dL (8.5-10.1); CHLORIDE 93 mmol/L (98-107); CO2 27 mmol/L (21-32); CREATININE 1.4 mg/dL (0.6-1.3); GLUCOSE 472 mg/dL (70-99); INR 1.1; PROTIME 10.9 Seconds (9.20-11.50); SODIUM 136 mmol/L (136-145)
[2019-01-01 20:27] LABS: POTASSIUM 2.6 mmol/L (3.5-5.1)
[2019-01-01 20:29] LABS: ABSOLUTE LYMPHOCYTES 0.7 thou/uL (0.8-5.3); ABSOLUTE MONOCYTES 0.3 thou/uL (0.0-1.2); ABSOLUTE NEUTROPHILS 15.7 thou/uL (1.6-8.1); ATYPICAL LYMPHS 1 %; PLATELET ESTIMATE ADEQUATE
[2019-01-01 20:32] LABS: ALBUMIN 3.7 g/dL (3.4-5.0); ALKALINE PHOSPHATASE 189 U/L (46-116); LIPASE 58 U/L (73-393); SGOT 40 U/L (15-37); SGPT 57 U/L (30-65); TOTAL BILIRUBIN 0.7 mg/dL (<0.1-1.0); TOTAL PROTEIN 8.2 g/dL (6.4-8.2); TROPONIN-I LEVEL <0.06 ng/mL (<0.06)
[2019-01-01 22:42] VITALS: BP 135/66
[2019-01-01 22:55] LABS: URINE BILIRUBIN NEGATIVE (Negative); URINE BLOOD NEGATIVE (Negative); URINE CLARITY CLEAR; URINE COLOR YELLOW; URINE GLUCOSE-RANDOM 3+ (Negative); URINE KETONES 1+ (Negative); URINE LEUKOCYTES-REFLEX NEGATIVE (Negative); URINE NITRITE-REFLEX NEGATIVE (Negative); URINE PROTEIN NEGATIVE (Negative); URINE UROBILINOGEN 0.2 E.U./dl (0.2-1.0)
[2019-01-01 23:00] VITALS: BP 151/73
[2019-01-01 23:04] LABS: AMP/METHAMP Negative (Negative); BARBITURATES Negative (Negative); BENZODIAZEPINES Negative (Negative); COCAINE Negative (Negative); METHADONE Negative (Negative); OPIATES POSITIVE (Negative); PCP Negative (Negative); THC Negative (Negative)
[2019-01-02 04:00] VITALS: BP 154/81
[2019-01-02 07:54] VITALS: BP 162/90
[2019-01-02 11:59] VITALS: BP 162/95
--- NOTE | 2019-01-02 14:18 | EKG ---
[place] [address] ELECTROCARDIOGRAM REPORT Name: KAY SIFUENTES Room: [address] ADM IN M.R.#: [id number] Admission: 01/01/19 Attend Phys: Jose Angel Kerr Discharge: Date of : 58 Report #: [id number] THIS REPORT FOR: //name// [facility] ED Test Date: 2019-01-01 Test Time: 20:03:45 Pat Name: KAY SIFUENTES Department: Room: [facility] Gender: F Imaging Specialist: DARCIE : 1960 Requested By: Marisa Patel Order Number: [id number] MD: Deshawn Guerrero Measurements Intervals [place] Rate: 127 P: 53 W[place]: 146 QRS: 35 QRSD: 84 T: -70 QT: 336 QTc: 489 Interpretive Statements Sinus tachycardia Probable left atrial enlargement Borderline ST depression, anterolateral leads Abnormal T, consider ischemia, inferior leads Borderline ST elevation, anterior leads Compared to ECG 12/09/2018 16:16:25 ST (T wave) deviation now present Possible ischemia now present T-wave abnormality still present Electronically Signed On 01-02-2019 14:18:05 BUTT PRESSER by Deshawn Guererro [email or web address] <ELECTRONICALLY SIGNED> By: Deshawn Guerrero MD, [facility] 01/02/19 1418 02 02 Deshawn Guerrero MD, [facility] /EPI
[2019-01-02 14:46] LABS: MAGNESIUM 1.5 mg/dL (1.8-2.4)
[2019-01-02 14:48] LABS: POTASSIUM 2.7 mmol/L (3.5-5.1)
[2019-01-02 16:00] VITALS: BP 149/84
[2019-01-02 19:00] VITALS: BP 138/74
[2019-01-02 23:07] LABS: GLYCOHEMOGLOBIN (HGB A1C) 8.7 % (4.8-5.6)
[2019-01-02 23:32] LABS: MAGNESIUM 2.3 mg/dL (1.8-2.4); POTASSIUM 3.1 mmol/L (3.5-5.1)
[2019-01-03] VITALS: BP 107/66
[2019-01-03 03:48] VITALS: BP 96/65
[2019-01-03 08:14] VITALS: BP 102/55
[2019-01-03 12:02] VITALS: BP 93/53
[2019-01-03 13:06] LABS: ABSOLUTE EOSINOPHILS 0.2 thou/uL (0.0-0.7); ABSOLUTE LYMPHOCYTES 1.8 thou/uL (0.8-5.3); ABSOLUTE MONOCYTES 0.9 thou/uL (0.0-1.2); ABSOLUTE NEUTROPHILS 13.8 thou/uL (1.6-8.1); BASOPHILS 0.2 %; EOSINOPHILS 0.9 %; HEMATOCRIT 32.9 % (37.0-47.0); HEMOGLOBIN 11.1 gm/dL (12.0-15.0); LYMPHOCYTES 10.5 %; MCH 30.1 pg (26.0-34.0); MCHC 33.7 g/dL (28.0-37.0); MCV 89.2 fL (80.0-100.0); MONOCYTES 5.5 %; MPV 7.2 fl. (7.2-11.1); NUCLEATED RBCS 0 /100WBC; PLATELET COUNT* 324 thou/uL (150-400); POLYS 82.9 %; RBC 3.69 mil/uL (4.20-5.00); RDW-CV 14.5 % (10.5-14.5); WBC 16.7 thou/uL (4.0-11.0)
[2019-01-03 13:16] LABS: CREATININE 1.1 mg/dL (0.6-1.3); POTASSIUM 3.4 mmol/L (3.5-5.1)
[2019-01-03 13:18] LABS: CALCIUM 7.7 mg/dL (8.5-10.1)
[2019-01-03 16:16] VITALS: BP 124/72
[2019-01-03 20:00] VITALS: BP 98/61
[2019-01-04] VITALS: BP 100/57
[2019-01-04 04:00] VITALS: BP 96/64
[2019-01-04 08:07] VITALS: BP 95/51
[2019-01-04 10:02] VITALS: BP 95/51
[2019-01-04 12:00] VITALS: BP 96/63
[2019-01-04] MEDS ORDERED: LOPERAMIDE 2 MG2 M1 PO (13:38)
== END 2019-01-04 15:20 | disposition home or self-care (01) | DRG 872 ==
LOC: M.ERS 19:14 → M.2W 21:14 → M.TBA-ER 21:14 → M.2W 22:32
PROVIDERS: Family Medicine; Physician Assistant; ADMIT Internal Medicine
DX: A41.89 Other specified sepsis (principal); N39.0 Urinary tract infection, site not specified; E87.2 Acidosis; R65.20 Severe sepsis without septic shock; A08.4 Viral intestinal infection, unspecified; F32.9 Major depressive disorder, single episode, unspecified; E78.5 Hyperlipidemia, unspecified; E11.65 Type 2 diabetes mellitus with hyperglycemia; E87.6 Hypokalemia; N18.3 Chronic kidney disease, stage 3 (moderate); E86.0 Dehydration; N20.0 Calculus of kidney; G89.29 Other chronic pain; M54.2 Cervicalgia; I12.9 Hypertensive chronic kidney disease with stage 1 through stage 4 chronic kidney disease, or unspecified chronic kidney disease; E11.22 Type 2 diabetes mellitus with diabetic chronic kidney disease; Z87.891 Personal history of nicotine dependence; Z87.828 Personal history of other (healed) physical injury and trauma; Z90.49 Acquired absence of other specified parts of digestive tract; Z79.899 Other long term (current) drug therapy; Z88.8 Allergy status to other drugs, medicaments and biological substances

== ENCOUNTER → 2019-02-06 | Outpatient (CLI) | payer OTHER ==
[~2019-02-06] MED LIST changes: +LOPERAMIDE 2 MG2 M1 PO
== END ==
LOC: M.RAD 16:05
DX: R05 Cough (principal); I10 Essential (primary) hypertension; Z98.890 Other specified postprocedural states

== ENCOUNTER 2019-02-26 15:07 | Inpatient (IN) | payer OTHER ==
[~2019-02-26] VITALS: Ht 157.5 cm; Wt 94.1 kg
--- NOTE | ~2019-02-26 | CON ---
[address] [address] CONSULTATION Name: KAY SIFUENTES Room: [address] IN M.R.#: [id number] Admission: 02/26/19 Attend Phys: Inés Gardiner Discharge: 02/28/19 Date of : 58 Report #: [id number] THIS REPORT FOR: //name// CC: Damaris Lujan DATE OF SERVICE: 02/27/2019 REQUESTING PHYSICIAN: Dr. Jose Alejandro Lujan. HISTORY OF PRESENT ILLNESS: This is a 58-year-old female who is well known to me as she has had occasional intermittent nausea and vomiting. She reports that she presented to hospital as she developed severe abdominal pain and nausea without any vomiting. She also denies any lower GI symptoms. She denies hematochezia, melena or change in stool habits and caliber. Her last colonoscopy was 8 years ago and she has not ever had any upper scopes. She also had a gastric emptying test back in 2017, which was normal. The patient currently feeling better. Denies any nausea, vomiting, abdominal pain, diarrhea, constipation. She tolerated her dinner. Her hypokalemia also has resolved as this has been replaced for her. PAST MEDICAL HISTORY: Significant for diabetes, dyslipidemia, hypertension, cyclic vomiting syndrome, depression, kidney stone, history of gallbladder disease, status post cholecystectomy, right hand surgery, neck surgery, and tubal ligation. ALLERGIES: SIGNIFICANT TO LISINOPRIL. MEDICATIONS: Please refer to MAR. SOCIAL HISTORY: The patient denies tobacco or alcohol use. FAMILY HISTORY: Noncontributory. PHYSICAL EXAMINATION: VITAL SIGNS: Reveals blood pressure of 119/71, respirations 16, pulse 78, temperature 97.5. LUNGS: Clear. CARDIOVASCULAR: Regular. ABDOMEN: Soft, nontender, nondistended. Bowel sounds are positive. NEUROLOGIC: The patient is alert, oriented x 3. There is no focal neurologic deficit. LABORATORY DATA: Revealed sodium of 139, potassium 3.8, BUN is 17, creatinine [facility] [address] [place] [address] CONSULTATION Name: KAY SIFUENTES MAYURI Room: [address] IN [facility].#: [id number] Admission: 02/26/19 Attend Phys: Inés Gardiner Discharge: 02/28/19 Date of : 58 Report #: [id number] 1.0, glucose 154, lipase is 65. Liver function tests are all within normal limits. Alkaline phosphatase is mildly elevated with a value of 164. GGTP is 44, albumin 3.0. UDS is positive for opiates. WBC is 10.4 with hemoglobin of 16.1 and platelet of 598. IMAGING: Last CT of abdomen and pelvis was obtained in 12/2018. This was significant for diverticulosis without evidence of diverticulitis and a small kidney stone, which was nonobstructive. ASSESSMENT AND PLAN: The patient is feeling well and tolerating diet without any nausea or vomiting. The labs are back to baseline. The patient has an appointment with her primary care physician on Wednesday. We will just follow up on p.r.n. basis as she denies any GI symptoms at this time. By: [id number] Velasquez MD /nt
[2019-02-26 15:15] VITALS: BP 141/77
[2019-02-26] MEDS ORDERED: HYDROCHLOROTHIA25 M2 PO (15:21)
[2019-02-26] MEDS ORDERED: LEVSIN0.125 MG PO (15:21)
[2019-02-26 15:33] LABS: ABSOLUTE BASOPHILS 0.1 thou/uL (0.0-0.2); ABSOLUTE EOSINOPHILS 0.1 thou/uL (0.0-0.7); ABSOLUTE LYMPHOCYTES 2.7 thou/uL (0.8-5.3); ABSOLUTE MONOCYTES 1.2 thou/uL (0.0-1.2); ABSOLUTE NEUTROPHILS 6.3 thou/uL (1.6-8.1); BASOPHILS 0.8 %; EOSINOPHILS 0.9 %; HEMOGLOBIN 16.1 gm/dL (12.0-15.0); LYMPHOCYTES 26.4 %; MCH 29.2 pg (26.0-34.0); MCHC 34.3 g/dL (28.0-37.0); MONOCYTES 11.4 %; MPV 7.6 fl. (7.2-11.1); NUCLEATED RBCS 0 /100WBC; PLATELET COUNT* 598 thou/uL (150-400); POLYS 60.5 %; RBC 5.52 mil/uL (4.20-5.00); RDW-CV 13.4 % (10.5-14.5); WBC 10.4 thou/uL (4.0-11.0)
[2019-02-26 15:48] LABS: ANION GAP 10 mmol/L (7-16); BUN 25 mg/dL (7-18); CALCIUM 10.1 mg/dL (8.5-10.1); CHLORIDE 88 mmol/L (98-107); CO2 37 mmol/L (21-32); CREATININE 1.2 mg/dL (0.6-1.3); GLUCOSE 312 mg/dL (70-99); LIPASE 65 U/L (73-393); SODIUM 135 mmol/L (136-145); TROPONIN-I LEVEL <0.06 ng/mL (<0.06)
[2019-02-26 15:51] LABS: POTASSIUM 2.3 mmol/L (3.5-5.1)
[2019-02-26 17:42] VITALS: BP 153/87
[2019-02-26 18:25] VITALS: BP 134/67
[2019-02-26 20:00] VITALS: BP 113/66
[2019-02-26 21:20] LABS: CALCIUM 8.9 mg/dL (8.5-10.1); CREATININE 1.3 mg/dL (0.6-1.3); TOTAL BILIRUBIN 0.5 mg/dL (<0.1-1.0); TOTAL PROTEIN 6.8 g/dL (6.4-8.2)
[2019-02-26 21:29] LABS: POTASSIUM 2.3 mmol/L (3.5-5.1)
[2019-02-27] VITALS: BP 112/84
[2019-02-27 03:50] VITALS: BP 139/92
[2019-02-27 08:13] VITALS: BP 146/92
[2019-02-27 08:27] LABS: URINE BILIRUBIN NEGATIVE (Negative); URINE BLOOD NEGATIVE (Negative); URINE CLARITY CLEAR; URINE COLOR YELLOW; URINE GLUCOSE-RANDOM NEGATIVE (Negative); URINE KETONES NEGATIVE (Negative); URINE LEUKOCYTES-REFLEX 1+ (Negative); URINE NITRITE-REFLEX NEGATIVE (Negative); URINE PROTEIN NEGATIVE (Negative); URINE SPECIFIC GRAVITY <= 1.005 (1.005-1.030); URINE UROBILINOGEN 0.2 E.U./dl (0.2-1.0)
[2019-02-27 08:35] LABS: AMP/METHAMP Negative (Negative); BARBITURATES Negative (Negative); BENZODIAZEPINES Negative (Negative); COCAINE Negative (Negative); METHADONE Negative (Negative); OPIATES POSITIVE (Negative); PCP Negative (Negative); SQUAMOUS 4-10 Moderate /LPF (0-3); THC Negative (Negative); URINE WBC-REFLEX 6-15 Few /HPF (0-5)
[2019-02-27 08:36] LABS: BACTERIA-REFLEX 1-9 Few /HPF (None Seen); CRYSTALS None Seen /LPF (None Seen); HYALINE CASTS 0-3 Few /LPF (None Seen); MUCUS 0-3 Light strn/LPF (None Seen); URINE RBC 0-2 Rare /HPF (0-2)
--- NOTE | 2019-02-27 11:11 | EKG ---
[place] [address] ELECTROCARDIOGRAM REPORT Name: KAY SIFUENTES Room: [address] ADM IN .R.#: [id number] Admission: 02/26/19 Attend Phys: Inés Gardiner Discharge: Date of : 58 Report #: [id number] THIS REPORT FOR: //name// [facility] ED Test Date: 2019-02-26 Test Time: 15:17:45 Pat Name: KAY SIFUENTES Department: Room: [facility] Gender: F [place] Planning Manager: [place] : 1960 Requested By: Elvis Guidry Order Number: [id number] MD: Deshawn Guerrero Measurements Intervals [place] Rate: 107 P: 37 [place]: 128 QRS: 9 QRSD: 91 T: 16 QT: 356 QTc: 475 Interpretive Statements Sinus tachycardia Right atrial enlargement Consider anterior infarct Borderline ST depression, lateral leads Compared to ECG 01/01/2019 20:03:45 Myocardial infarct finding now present T-wave abnormality no longer present Possible ischemia no longer present ST (T wave) deviation still present Electronically Signed On 02-27-2019 11:11:05 CDT by Deshawn Guerrero [email or web address] <ELECTRONICALLY SIGNED> By: Deshawn Guerrero MD, FACC 02/27/19 1111 1517 1517 Deshawn Guerrero MD, FACC /EPI
[2019-02-27 11:40] VITALS: BP 160/99
[2019-02-27 16:00] VITALS: BP 125/80
[2019-02-27 20:00] VITALS: BP 115/73
[2019-02-28] VITALS: BP 120/76
[2019-02-28 02:06] LABS: GLYCOHEMOGLOBIN (HGB A1C) 7.9 % (4.8-5.6)
[2019-02-28 04:00] VITALS: BP 144/94
[2019-02-28 05:39] LABS: CALCIUM 8.7 mg/dL (8.5-10.1); POTASSIUM 3.8 mmol/L (3.5-5.1)
[2019-02-28 08:17] VITALS: BP 119/71
[2019-02-28] MEDS ORDERED: ONDANSETRON HCL4 M2 PO (11:46)
[2019-02-28 12:23] VITALS: BP 119/71
== END 2019-02-28 13:02 | disposition home or self-care (01) | DRG 392 ==
LOC: M.ERS 15:07 → M.2W 16:15 → M.TBA-ER 16:15 → M.2W 17:53
PROVIDERS: Nurse Practitioner Psychiatric/Mental Health; ADMIT Internal Medicine
DX: A08.4 Viral intestinal infection, unspecified (principal); E87.1 Hypo-osmolality and hyponatremia; E87.6 Hypokalemia; N18.3 Chronic kidney disease, stage 3 (moderate); E11.22 Type 2 diabetes mellitus with diabetic chronic kidney disease; F32.9 Major depressive disorder, single episode, unspecified; I12.9 Hypertensive chronic kidney disease with stage 1 through stage 4 chronic kidney disease, or unspecified chronic kidney disease; E78.5 Hyperlipidemia, unspecified; E87.8 Other disorders of electrolyte and fluid balance, not elsewhere classified; E86.0 Dehydration; M54.2 Cervicalgia; G89.29 Other chronic pain; Z87.442 Personal history of urinary calculi; Z87.891 Personal history of nicotine dependence; Z90.49 Acquired absence of other specified parts of digestive tract; Z87.828 Personal history of other (healed) physical injury and trauma; Z79.899 Other long term (current) drug therapy; Z88.8 Allergy status to other drugs, medicaments and biological substances

== ENCOUNTER → 2019-03-07 | Outpatient (CLI) | payer OTHER ==
[~2019-03-07] MED LIST changes: +LEVSIN0.125 MG PO
--- NOTE | 2019-03-07 15:26 | 2DMMODE ---
[place] [address] 2 D/M-MODE ECHOCARDIOGRAM Name: NONIRAMINBERNAKAY MAYURI Room: [facility]#: [id number] Admission: 03/07/19 Attend Phys: Damaris Howard MD Discharge: Date of : 58 Date of Service: 03/07/19 1525 Report #: [id number] THIS REPORT FOR: //name// APPROVED REPORT Study performed: 03/07/2019 13:41:07 EXAM: Comprehensive 2D, Doppler, and color-flow Echocardiogram Patient Location: Out-Patient BSA: 1.96 HR: 94 bpm BP: 119/71 mmHg Other Information Study Quality: Good Indications Peripheral Edema 2D Dimensions IVSd: 10.02 (7-11mm) LVOT Diam: 20.40 (18-24mm) LVDd: 42.02 mm PWd: 10.04 (7-11mm) Ascending Ao: 25.65 (22-36mm) LVDs: 24.37 (25-40mm) Aortic Root: 16.15 mm Volumes Left Atrial Volume (Systole) LA ESV Index: 8.70 mL/m2 Aortic Valve AoV Peak Asad.: 1.39 m/s AO Peak Gr.: 7.77 mmHg LVOT Max P.25 mmHg AO Mean Gr.: 4.20 mmHg LVOT Mean P.63 mmHg LVOT Max V: 0.90 m/s AO V2 VTI: 23.84 cm LVOT Mean V: 0.59 m/s ALIA (VTI): 2.22 cm2 LVOT V1 VTI: 16.21 cm Mitral Valve E/A Ratio: 0.74 MV Decel. Time: 273.50 ms MV E Max Asad.: 0.64 m/s MV PHT: 79.31 ms MVA (PHT): 2.77 [place]2 [place] [address] 2 D/M-MODE ECHOCARDIOGRAM Name: KAY SIFUENTES Room: [facility]#: [id number] Admission: 03/07/19 Attend Phys: Damaris Howard MD Discharge: Date of : 58 Date of Service: 03/07/19 1525 Report #: [id number] TDI E/Lateral E': 7.11 E/Medial E': 7.11 Medial E' Asad.: 0.09 m/s Lateral E' Asad.: 0.09 m/s Pulmonary Valve PV Peak Asad.: 1.09 m/s PV Peak Gr.: 4.76 mmHg Left Ventricle The left ventricle is normal size. There is normal LV segmental wall motion. There is normal left ventricular wall thickness. Left ventricular systolic function is normal. LVEF is 60-65%. Transmitral Doppler flow pattern suggests impaired LV relaxation. Right Ventricle The right ventricle is normal size. The right ventricular systolic function is normal. Atria The left atrium size is normal. The right atrium size is normal. Aortic Valve The aortic valve is normal in structure. No aortic regurgitation is present. There is no aortic valvular stenosis. Mitral Valve The mitral valve is normal in structure. Mild mitral regurgitation. No evidence of mitral valve stenosis. Tricuspid Valve The tricuspid valve is normal in structure. There is no tricuspid valve regurgitation noted. Pulmonic Valve The pulmonary valve is normal in structure. There is no pulmonic valvular regurgitation. Great Vessels The aortic root is normal in size. IVC is normal in size and collapses >50% with inspiration. Pericardium There [place] [address] 2 D/M-MODE ECHOCARDIOGRAM Name: BEARKAY Room: [facility]#: [id number] Admission: 03/07/19 Attend Phys: Damaris Howard MD Discharge: Date of : 58 Date of Service: 03/07/19 1525 Report #: [id number] <Conclusion> The left ventricle is normal size. There is normal left ventricular wall thickness. Left ventricular systolic function is normal. LVEF is 60-65%. Transmitral Doppler flow pattern suggests impaired LV relaxation. Mild mitral regurgitation. IVC is normal in size and collapses >50% with inspiration. <ELECTRONICALLY SIGNED> By: Juwan Alcala MD, FACC 03/07/19 1525 1525 1525 Juwan Alcala MD, FACC /INF
== END ==
LOC: M.CRD 13:27
DX: I34.0 Nonrheumatic mitral (valve) insufficiency (principal)

== ENCOUNTER 2019-04-15 23:39 | Inpatient (IN) | payer OTHER ==
[~2019-04-15] VITALS: Ht 157.5 cm; Wt 96.5 kg
--- NOTE | ~2019-04-15 | CON ---
[address] [address] CONSULTATION Name: KAY SIFUENTES Room: [address] IN M.R.#: [id number] Admission: 04/16/19 Attend Phys: Jose Angel Kerr Discharge: Date of : 58 Report #: [id number] THIS REPORT FOR: //name// CC: Damaris Lemon NEUROLOGY CONSULTATION HISTORY OF PRESENT ILLNESS: The patient is a 58-year-old female who came to the hospital yesterday with confusion. The patient has a history of diabetes and had been started on metformin to control her blood sugar, but she had diarrhea from the medication. When she came to the Emergency Room, her blood sugar was elevated at 257. The patient states that she is very careful with her blood sugar and it usually runs in the 120s. She has never had an episode with her blood sugar so high. She typically monitors it at home. When the patient came to the Emergency Room, the patient was unresponsive. The patient is on a lot of medication and from time to time she gets confused as to which medications she takes. The patient also had slurred speech. PAST MEDICAL HISTORY: Hypertension, depression, gastric ulcer, diabetes mellitus, hyperlipidemia, chronic neck pain and pancreatitis. PAST SURGICAL HISTORY: Cholecystectomy, tubal ligation, cervical spine surgery and right hand surgery. MEDICATIONS: Amlodipine 10 mg daily, amitriptyline 50 mg at night, tizanidine 4 mg q. 6 hours, Ambien 10 mg at bedtime, oxycodone 10 mg q. 6 hours, pantoprazole 40 mg daily, duloxetine 60 mg daily, hydrochlorothiazide 25 mg b.i.d., lorazepam 1 mg p.r.n. and promethazine 25 mg p.r.n. ALLERGIES: LISINOPRIL. VITAL SIGNS: Temperature is 36.8, pulse rate 98, respiratory rate 16, blood pressure 129/92 and oxygen saturation 98% on 2 liters. LABORATORY DATA: Hematology: White blood cell count 15.2, hemoglobin 13.4, hematocrit 39, MCV 83.5 and platelet count 436,000. Urinalysis: Leukocyte esterase 3+. Chemistry: Sodium 134, potassium 2.8, chloride 95, carbon dioxide 27, BUN 26, creatinine 1.2, GFR 46 and glucose 257. Hemoglobin A1c in February of this year was 7.9. IMAGING: CT scan of the head was unremarkable. NEUROLOGIC EXAMINATION: Cranial nerves 2-12 are grossly intact. Motor exam demonstrates symmetrical movement in all four extremities. There is no evidence of dysmetria. [place] [address] CONSULTATION Name: KAY SIFUENTES MAYURI Room: [address] IN [facility].#: [id number] Admission: 04/16/19 Attend Phys: Jose Angel Kerr Discharge: Date of : 58 Report #: [id number] IMPRESSION: This patient has encephalopathy. This may be secondary to medication, particularly medications like tizanidine and oxycodone. Perhaps the patient should try physical therapy or pain management for control of her medications. She had an elevation of blood sugar, but I do not think that explains everything that has happened. I do think perhaps some modification of her sedating medications would be in order. Otherwise, I see no reason why the patient cannot be discharged as long as her potassium level has returned to normal. I thank you for your kind referral of this patient. By: [id number] [id number] Whitfield DO /nt
[2019-04-15 23:42] VITALS: BP 130/80
[2019-04-16] MEDS ORDERED: ATIVAN1 MG PO (00:02)
[2019-04-16 00:15] LABS: ABSOLUTE BASOPHILS 0.1 thou/uL (0.0-0.2); ABSOLUTE EOSINOPHILS 0.2 thou/uL (0.0-0.7); ABSOLUTE LYMPHOCYTES 1.9 thou/uL (0.8-5.3); ABSOLUTE NEUTROPHILS 11.9 thou/uL (1.6-8.1); BASOPHILS 0.7 %; EOSINOPHILS 1.5 %; HEMOGLOBIN 13.4 gm/dL (12.0-15.0); LYMPHOCYTES 12.7 %; MCH 28.7 pg (26.0-34.0); MCHC 34.3 g/dL (28.0-37.0); MCV 83.5 fL (80.0-100.0); MONOCYTES 6.5 %; MPV 7.2 fl. (7.2-11.1); NUCLEATED RBCS 0 /100WBC; PLATELET COUNT* 436 thou/uL (150-400); POLYS 78.6 %; RBC 4.67 mil/uL (4.20-5.00); RDW-CV 13.8 % (10.5-14.5); WBC 15.2 thou/uL (4.0-11.0)
[2019-04-16 00:30] LABS: URINE BILIRUBIN NEGATIVE (Negative); URINE BLOOD 2+ (Negative); URINE CLARITY CLEAR; URINE COLOR YELLOW; URINE GLUCOSE-RANDOM NEGATIVE (Negative); URINE KETONES NEGATIVE (Negative); URINE NITRITE-REFLEX NEGATIVE (Negative); URINE PROTEIN TRACE (Negative); URINE UROBILINOGEN 0.2 E.U./dl (0.2-1.0)
[2019-04-16 00:31] LABS: CREATININE 1.2 mg/dL (0.6-1.3)
[2019-04-16 00:33] LABS: POTASSIUM 2.8 mmol/L (3.5-5.1)
[2019-04-16 00:36] LABS: URINE LEUKOCYTES-REFLEX 3+ (Negative)
[2019-04-16 00:36] LABS: ALBUMIN 3.3 g/dL (3.4-5.0); TOTAL BILIRUBIN 0.5 mg/dL (<0.1-1.0); TOTAL PROTEIN 7.2 g/dL (6.4-8.2)
[2019-04-16 00:43] LABS: BE 1.2 mmol/L (-2 to +3); PCO2 36.4 mmHg (35.0-45.0); PO2 94.1 mmHg (75.0-100.0); pH 7.452 (7.340-7.450)
[2019-04-16 00:48] LABS: AMP/METHAMP Negative (Negative); BARBITURATES Negative (Negative); BENZODIAZEPINES Negative (Negative); COCAINE Negative (Negative); METHADONE Negative (Negative); OPIATES Negative (Negative); PCP Negative (Negative); THC Negative (Negative)
[2019-04-16 00:57] LABS: BACTERIA-REFLEX >30 Many /HPF (None Seen); CASTS None Seen /LPF (None Seen); CRYSTALS None Seen /LPF (None Seen); MUCUS 0-3 Light strn/LPF (None Seen); SQUAMOUS 0-3 Few /LPF (0-3); URINE RBC 3-10 Few /HPF (0-2); URINE WBC-REFLEX >25 Many /HPF (0-5); WBC CLUMPS Few (None Seen)
[2019-04-16 03:14] VITALS: BP 131/65
[2019-04-16 03:30] VITALS: BP 102/63
[2019-04-16] MEDS ORDERED: PHENERGAN 25 MG25 M1 PO (04:18)
[2019-04-16 05:58] LABS: AMP/METHAMP Negative (Negative); BARBITURATES Negative (Negative); BENZODIAZEPINES Negative (Negative); COCAINE Negative (Negative); METHADONE Negative (Negative); OPIATES Negative (Negative); PCP Negative (Negative); THC Negative (Negative)
[2019-04-16 09:00] VITALS: BP 132/71
[2019-04-16 12:00] VITALS: BP 139/92
[2019-04-16] MEDS ORDERED: METFORMIN HCL500 MG PO (12:31)
[2019-04-16] MEDS ORDERED: LASIX 20 MG TAB20 MG PO (12:38)
[2019-04-16 14:07] LABS: CALCIUM 8.8 mg/dL (8.5-10.1); MAGNESIUM 1.8 mg/dL (1.8-2.4); POTASSIUM 3.1 mmol/L (3.5-5.1)
[2019-04-16 16:00] VITALS: BP 135/86
[2019-04-16 20:00] VITALS: BP 142/83
[2019-04-17] VITALS: BP 124/76
[2019-04-17 04:00] VITALS: BP 136/89
[2019-04-17 04:17] LABS: HEMATOCRIT 35.3 % (37.0-47.0); HEMOGLOBIN 11.8 gm/dL (12.0-15.0); MCH 28.8 pg (26.0-34.0); MCHC 33.4 g/dL (28.0-37.0); MCV 86.3 fL (80.0-100.0); MPV 7.4 fl. (7.2-11.1); RBC 4.09 mil/uL (4.20-5.00); RDW-CV 14.2 % (10.5-14.5); WBC 8.3 thou/uL (4.0-11.0)
[2019-04-17 04:31] LABS: CALCIUM 8.3 mg/dL (8.5-10.1); CREATININE 0.8 mg/dL (0.6-1.3); MAGNESIUM 1.5 mg/dL (1.8-2.4); POTASSIUM 3.5 mmol/L (3.5-5.1)
[2019-04-17 08:21] VITALS: BP 116/76
[2019-04-17 11:49] VITALS: BP 144/80
[2019-04-17 13:53] LABS: MAGNESIUM 1.5 mg/dL (1.8-2.4); POTASSIUM 4.2 mmol/L (3.5-5.1)
[2019-04-17 16:32] VITALS: BP 137/77
--- NOTE | 2019-04-17 16:57 | EKG ---
[place] [address] ELECTROCARDIOGRAM REPORT Name: KAY SIFUENTES Room: [address] ADM IN M.R.#: [id number] Admission: 04/16/19 Attend Phys: Jose Angel Kerr Discharge: Date of : 58 Report #: [id number] THIS REPORT FOR: //name// [facility] ED Test Date: 2019-04-15 Test Time: 23:44:47 Pat Name: KAY SIFUENTES Department: Room: [facility] Gender: F Tong Hooker: [place] : 1960 Requested By: Marisa Sharma Order Number: [id number] MD: Deshawn Guerrero Measurements Intervals [place] Rate: 66 P: 47 [place]: 168 QRS: -15 QRSD: 87 T: -8 QT: 432 QTc: 453 Interpretive Statements Sinus rhythm Left atrial enlargement Borderline left axis deviation Low voltage, extremity leads Lead(s) II were not used for morphology analysis Compared to ECG 02/26/2019 15:17:45 Low QRS voltage now present Sinus tachycardia no longer present Myocardial infarct finding no longer present ST (T wave) deviation no longer present Electronically Signed On 04-17-2019 16:57:19 CDT by Deshawn Guerrero [email or web address] <ELECTRONICALLY SIGNED> By: Deshawn Guerrero MD, [facility] 04/17/19 1657 2344 2344 Deshawn Guerrero MD, [facility] /EPI
[2019-04-17 20:00] VITALS: BP 147/93
[2019-04-18] VITALS: BP 149/93
[2019-04-18 04:00] VITALS: BP 131/90
[2019-04-18 05:25] LABS: HEMATOCRIT 42.1 % (37.0-47.0); MCH 29.3 pg (26.0-34.0); MCV 86.3 fL (80.0-100.0); RBC 4.87 mil/uL (4.20-5.00); RDW-CV 14.4 % (10.5-14.5); WBC 8.7 thou/uL (4.0-11.0)
[2019-04-18 05:25] LABS: ALBUMIN 3.8 g/dL (3.4-5.0); CALCIUM 9.8 mg/dL (8.5-10.1); CREATININE 0.9 mg/dL (0.6-1.3); MAGNESIUM 1.9 mg/dL (1.8-2.4); POTASSIUM 4.6 mmol/L (3.5-5.1); TOTAL BILIRUBIN 0.4 mg/dL (<0.1-1.0); TOTAL PROTEIN 8.2 g/dL (6.4-8.2)
[2019-04-18 05:52] LABS: HEMOGLOBIN 14.3 gm/dL (12.0-15.0)
[2019-04-18 08:34] VITALS: BP 141/93
[2019-04-18 13:25] VITALS: BP 95/63
[2019-04-18 13:44] VITALS: BP 95/63
[2019-04-18] MEDS ORDERED: PROBIOTIC1 EAC1 PO (13:50)
[2019-04-18] MEDS ORDERED: LEVAQUIN 500 M500 M2 PO (13:51)
== END 2019-04-18 14:54 | disposition home or self-care (01) | DRG 871 ==
LOC: M.ERS 23:39 → M.TBA-ER 04-16 02:05 → M.2W 04-16 02:05
PROVIDERS: Family Medicine; Personal Emergency Response Attendant; ADMIT Internal Medicine
DX: A41.9 Sepsis, unspecified organism (principal); G92 Toxic encephalopathy; J18.9 Pneumonia, unspecified organism; N39.0 Urinary tract infection, site not specified; E87.6 Hypokalemia; T40.601A Poisoning by unspecified narcotics, accidental (unintentional), initial encounter; E83.42 Hypomagnesemia; E11.65 Type 2 diabetes mellitus with hyperglycemia; F32.9 Major depressive disorder, single episode, unspecified; M54.2 Cervicalgia; I10 Essential (primary) hypertension; E78.5 Hyperlipidemia, unspecified; Z90.49 Acquired absence of other specified parts of digestive tract; Z79.84 Long term (current) use of oral hypoglycemic drugs; Z88.8 Allergy status to other drugs, medicaments and biological substances; Z82.49 Family history of ischemic heart disease and other diseases of the circulatory system

== ENCOUNTER 2019-10-14 20:12 | Inpatient (IN) | payer OTHER ==
[~2019-10-14] VITALS: Ht 157.5 cm; Wt 88.9 kg
[~2019-10-14 20:12] MED LIST changes: +LEVAQUIN 500 M500 M2 PO; +METFORMIN HCL500 MG PO; +PROBIOTIC1 EAC1 PO
[2019-10-14 20:20] VITALS: BP 167/111
[2019-10-14 20:47] LABS: URINE BILIRUBIN NEGATIVE (Negative); URINE BLOOD NEGATIVE (Negative); URINE CLARITY CLEAR; URINE COLOR YELLOW; URINE GLUCOSE-RANDOM NEGATIVE (Negative); URINE KETONES NEGATIVE (Negative); URINE LEUKOCYTES-REFLEX TRACE (Negative); URINE NITRITE-REFLEX NEGATIVE (Negative); URINE PROTEIN NEGATIVE (Negative); URINE UROBILINOGEN 0.2 E.U./dl (0.2-1.0)
[2019-10-14 20:53] LABS: MUCUS None Seen strn/LPF (None Seen); SQUAMOUS 0-3 Few /LPF (0-3)
[2019-10-14 20:57] LABS: BACTERIA-REFLEX None Seen /HPF (None Seen); CRYSTALS None Seen /LPF (None Seen); HYALINE CASTS 0-3 Few /LPF (None Seen); URINE RBC None Seen /HPF (0-2); URINE WBC-REFLEX 0-5 Rare /HPF (0-5)
[2019-10-14 21:01] LABS: ABSOLUTE BASOPHILS 0.1 thou/uL (0.0-0.2); ABSOLUTE EOSINOPHILS 0.3 thou/uL (0.0-0.7); ABSOLUTE LYMPHOCYTES 3.1 thou/uL (0.8-5.3); ABSOLUTE MONOCYTES 0.9 thou/uL (0.0-1.2); BASOPHILS 1.1 %; EOSINOPHILS 2.5 %; HEMATOCRIT 41.9 % (37.0-47.0); HEMOGLOBIN 14.5 gm/dL (12.0-15.0); MCH 29.6 pg (26.0-34.0); MCHC 34.5 g/dL (28.0-37.0); MCV 85.8 fL (80.0-100.0); MONOCYTES 8.7 %; MPV 6.7 fl. (7.2-11.1); NUCLEATED RBCS 0 /100WBC; PLATELET COUNT* 541 thou/uL (150-400); POLYS 57.7 %; RBC 4.88 mil/uL (4.20-5.00); WBC 10.5 thou/uL (4.0-11.0)
[2019-10-14 21:19] LABS: CALCIUM 9.4 mg/dL (8.5-10.1); POTASSIUM 3.2 mmol/L (3.5-5.1)
[2019-10-14 21:23] LABS: TOTAL BILIRUBIN 0.4 mg/dL (<0.1-1.0); TOTAL PROTEIN 8.7 g/dL (6.4-8.2)
[2019-10-14 23:01] VITALS: BP 134/85
[2019-10-14 23:30] VITALS: BP 131/87
[2019-10-15 04:28] VITALS: BP 112/79
--- NOTE | 2019-10-15 06:37 | NUR ---
PT RECIEVED FROM ED IN ROOM 226. ALERT AND ORIENTED X4. PT SAYS HER DOUBLE VISION HAS RESOLVED AND DENIES DIZZINESS. CALL LIGHT WITHIN REACH AND BED IN LOW POSITION. C/O PAIN, MEDICATION GIVEN PER EMAR. HOURLY ROUNDING DONE FOR PT SAFETY.
[2019-10-15] MEDS ORDERED: HYOSCYAMINE0.125 MG PO (06:58)
[2019-10-15 08:00] VITALS: BP 123/85
[2019-10-15 13:38] LABS: CALCIUM 9.5 mg/dL (8.5-10.1); MAGNESIUM 1.7 mg/dL (1.8-2.4); POTASSIUM 3.4 mmol/L (3.5-5.1)
[2019-10-15 14:39] VITALS: BP 153/99
--- NOTE | 2019-10-15 19:34 | NUR ---
RECEIVED REPORT. ASSUMED CARE OF OF PT AROUND 0730. PT A&O X4. VSS. VENTILATION MECHANIC IN PLACE TRACING ST IN LOW 100'S WITH NO CHANGES THIS SHIFT. AM ASSESSMENT AND VITALS COMPLTED CHARTED. IV INTACT. MRI AND US CAROTIDS COMPLETED THIS SHIFT, SEE RESULTS. NIH 1 FOR SLIGHT FACIAL DROOP. BEDSIDE SWALLOW PASSED. AT BEDSIDE MOST OF SHIFT. PT REPORTED NECK PAIN THIS AM THAT WAS TREATED WITH PO PAIN MEDICATION WITH RELIEF. PT TOLERATING DIET. MEDS PER EMAR. PT HOPEFUL TO DC TOMORROW. PT CURRENTLY WATCHING TV IN BED. CALL LIGHT IS WITHIN REACH. HOURLY ROUNDING PERFORMED. FALL PRECAUTIONS IN PLACE.
[2019-10-15 19:50] VITALS: BP 143/99
[2019-10-15 19:55] VITALS: BP 144/89
[2019-10-16] VITALS: BP 141/95
[2019-10-16 04:00] VITALS: BP 121/86
--- NOTE | 2019-10-16 04:48 | NUR ---
PT CARE ASSUMED AT 1930. SAT MAINTAINED IN RA. ALERT AND ORIENTED X4. CALL LIGHT WITHIN REACH AND BED IN LOW POSITION. C/O PAIN, MEDICATION GIVEN PER EMAR. HOURLY ROUNDING DONE FOR PT SAFETY.
[2019-10-16 04:49] LABS: ABSOLUTE BASOPHILS 0.1 thou/uL (0.0-0.2); ABSOLUTE EOSINOPHILS 0.4 thou/uL (0.0-0.7); ABSOLUTE MONOCYTES 0.9 thou/uL (0.0-1.2); ABSOLUTE NEUTROPHILS 3.7 thou/uL (1.6-8.1); BASOPHILS 1.5 %; EOSINOPHILS 4.6 %; HEMATOCRIT 41.7 % (37.0-47.0); LYMPHOCYTES 43.8 %; MCH 29.4 pg (26.0-34.0); MCHC 33.7 g/dL (28.0-37.0); MCV 87.2 fL (80.0-100.0); MONOCYTES 9.6 %; MPV 7.2 fl. (7.2-11.1); NUCLEATED RBCS 0 /100WBC; PLATELET COUNT* 533 thou/uL (150-400); POLYS 40.5 %; RBC 4.78 mil/uL (4.20-5.00); RDW-CV 13.9 % (10.5-14.5); WBC 9.2 thou/uL (4.0-11.0)
[2019-10-16 05:02] LABS: ALBUMIN 3.6 g/dL (3.4-5.0); ALKALINE PHOSPHATASE 156 U/L (46-116); ANION GAP 15 mmol/L (7-16); BUN 29 mg/dL (7-18); CALCIUM 9.3 mg/dL (8.5-10.1); CHLORIDE 97 mmol/L (98-107); CHOLESTEROL 235 mg/dL (<200); CO2 24 mmol/L (21-32); CREATININE 1.2 mg/dL (0.6-1.3); GLUCOSE 194 mg/dL (70-99); HDL CHOLESTEROL 46 mg/dL (>40); SGOT 28 U/L (15-37); SGPT 50 U/L (30-65); SODIUM 136 mmol/L (136-145); TC:HDL 5.1 Ratio (Not establshd); TOTAL BILIRUBIN 0.4 mg/dL (<0.1-1.0); TOTAL PROTEIN 7.9 g/dL (6.4-8.2); TRIGLYCERIDE 445 mg/dL (<150); VLDL 89 mg/dL (<40)
[2019-10-16 05:15] LABS: SERUM ASSESSMENT CLEAR
[2019-10-16 05:16] LABS: POTASSIUM 2.9 mmol/L (3.5-5.1)
[2019-10-16 08:00] VITALS: BP 138/89
[2019-10-16 11:30] VITALS: BP 134/91
--- NOTE | 2019-10-16 12:03 | NUR ---
ASSUMED PT CARE AT 0800, AOX4, UP AD FRANSISCO, O2 SAT 90'S RA. TRACING SINUS RHYTHM ON TELE. PT DENIES PAIN. PT FOR DISCHARGE. VSS, AM ASSESSMENT CHARTED, MEDS GIVEN PER MAR. CALL LIGHT WITHIN REACH, WILL CONTINUE TO MONITOR.
[2019-10-16] MEDS ORDERED: LIPITOR40 MG PO (13:04)
[2019-10-16] MEDS ORDERED: ASA81BEC PO (13:04)
[2019-10-16 13:14] VITALS: BP 134/91
--- NOTE | 2019-10-16 17:29 | 2DMMODE ---
[place] [address] 2 D/M-MODE ECHOCARDIOGRAM Name: BEARKAY MESSINA Room: [address] IN [facility]#: [id number] Admission: 10/14/19 Attend Phys: Komal Mcintyre, Discharge: Date of : 58 Date of Service: 10/16/19 1729 Report #: [id number] THIS REPORT FOR: //name// APPROVED REPORT Study performed: 10/16/2019 14:16:35 EXAM: Comprehensive 2D, Doppler, and color-flow Echocardiogram Patient Location: In-Patient Room #: [facility] Status: routine BSA: 1.90 HR: 100 bpm BP: 138/89 mmHg Rhythm: NSR Other Information Study Quality: Good Indications CVA/TIA Echo Enhancing Agent Indication: Rule out Shunt Agent(s) / Amount(s) Used: Agitated Saline 10 cc 2D Dimensions IVSd: 13.08 (7-11mm) LVOT Diam: 18.76 (18-24mm) LVDd: 44.98 mm PWd: 7.38 (7-11mm) Ascending Ao: 26.20 (22-36mm) LVDs: 21.49 (25-40mm) Aortic Root: 27.55 mm Volumes Left Atrial Volume (Systole) LA ESV Index: 11.70 mL/m2 Aortic Valve AoV Peak Asad.: 1.41 m/s AO Peak Gr.: 7.97 mmHg LVOT Max P.11 mmHg AO Mean Gr.: 4.36 mmHg LVOT Mean P.51 mmHg LVOT Max V: 1.13 m/s AO V2 VTI: 20.82 cm LVOT Mean V: 0.73 m/s ALIA (VTI): 2.18 cm2 LVOT V1 VTI: 16.44 [place] [address] 2 D/M-MODE ECHOCARDIOGRAM Name: KAY SIFUENTES Room: [address] IN ..#: [id number] Admission: 10/14/19 Attend Phys: Komal Mcintyre, Discharge: Date of : 58 Date of Service: 10/16/19 1729 Report #: [id number] Mitral Valve E/A Ratio: 0.64 MV Decel. Time: 148.87 ms MV E Max Asad.: 0.52 m/s MV PHT: 43.17 ms MVA (PHT): 5.10 cm2 TDI E/Medial E': 5.78 Medial E' Asad.: 0.09 m/s Pulmonary Valve PV Peak Asad.: 1.11 m/s PV Peak Gr.: 4.92 mmHg Left Ventricle The left ventricle is normal size. There is normal LV segmental wall motion. There is normal left ventricular wall thickness. Left ventricular systolic function is normal. LVEF is 65-70%. Grade I - abnormal relaxation pattern. Right Ventricle The right ventricle is normal size. The right ventricular systolic function is normal. Atria The left atrium size is normal. Interatrial septum is intact without evidence of ASD or PFO. The right atrium size is normal. Aortic Valve The aortic valve is normal in structure. No aortic regurgitation is present. There is no aortic valvular stenosis. Mitral Valve The mitral valve is normal in structure. There is no mitral valve regurgitation noted. No evidence of mitral valve stenosis. Tricuspid Valve The tricuspid valve is normal in structure. Trace tricuspid regurgitation. Unable to assess PA pressure. Pulmonic Valve The pulmonary valve is normal in structure. There is no pulmonic valvular regurgitation. Great Vessels The aortic root is normal in size. IVC [place] [address] 2 D/M-MODE ECHOCARDIOGRAM Name: KAY SIFUENTES Room: [address] IN [facility]#: [id number] Admission: 10/14/19 Attend Phys: Komal Mcintyre, Discharge: Date of : 58 Date of Service: 10/16/19 1729 Report #: [id number] collapses >50% with inspiration. Pericardium Trace pericardial effusion. <Conclusion> The left ventricle is normal size. There is normal left ventricular wall thickness. Left ventricular systolic function is normal. LVEF is 65-70%. Grade I - abnormal relaxation pattern. Interatrial septum is intact without evidence of ASD or PFO. <ELECTRONICALLY SIGNED> By: Juwan Alcala MD, FACC 10/16/191728 28 28 Juwan Alcala MD, FACC /INF
--- NOTE | 2019-10-16 19:19 | NUR ---
DISCHARGED PLAN DISCUSSED WITH THE PT. MEDICATION PACKET/SCRIPT GIVEN. IV, TELE REMOVED. REMINDED TO FOLLOW UP WITH PCP, NEUROLOGY. ALL BELONGING PACK AND CHECKED. LEFT THE UNIT AMBULATORY.
[2019-10-17 02:06] LABS: GLYCOHEMOGLOBIN (HGB A1C) 7.3 % (4.8-5.6)
--- NOTE | 2019-10-17 10:41 | EKG ---
[place] [address] ELECTROCARDIOGRAM REPORT Name: KAY SIFUENTES Room: [address] IN .R.#: [id number] Admission: 10/14/19 Attend Phys: Komal Mcintyre MD Discharge: 10/16/19 Date of : 58 Report #: [id number] THIS REPORT FOR: //name// [facility] ED Test Date: 2019-10-14 Test Time: 20:44:09 Pat Name: KAY SIFUENTES Department: Room: [facility] Gender: F Compensation And Hris Analyst: LEDA : 1960 Requested By: Anita Garcia Order Number: [id number] MD: Juwan Alcala Measurements Intervals [place] Rate: 111 P: 31 [place]: 143 QRS: 24 QRSD: 83 T: 7 QT: 319 QTc: 434 Interpretive Statements Sinus tachycardia Right atrial enlargement Minimal ST depression, lateral leads Compared to ECG 04/15/2019 23:44:47 ST (T wave) deviation now present Sinus rhythm no longer present Electronically Signed On 10-17-2019 10:41:35 INTERIOR SPECIALIST by Juwan Alcala [email or web address] <ELECTRONICALLY SIGNED> By: Juwan Alcala MD, FACC 10/17/19 1041 43 Juwan Alcala MD, FAC /EPI
--- NOTE | 2019-10-20 13:36 | CON ---
[address] [address] CONSULTATION Name: KAY SIFUENTES Room: [address] IN M.R.#: [id number] Admission: 10/14/19 Attend Phys: Komal Mcintyre MD Discharge: 10/16/19 Date of : 58 Report #: [id number] THIS REPORT FOR: //name// CC: Damaris Mcintyre DATE OF SERVICE: 10/15/2019 HISTORY OF PRESENT ILLNESS: This is a 58-year-old female patient who was admitted with an episode of diplopia, which has resolved. This episode came spontaneously without any trauma. She woke up with this episode. She did not know anything which makes it better or worse. She thinks she may have had episode like this before, but she does not remember clearly. She said her memory is poor because she had some head injury about 12 years ago. REVIEW OF SYSTEMS: Positive for an episode of a head injury about 12 years ago. She had multiple MRIs that time, but never had an MRI from the last 10 years. She did not think she has any contraindication for doing an MRI. She does have a history of depression, diabetes, hypertension, pancreatitis, tubal ligation. She still has some neck pain. Presently, she denies any eye, ENT, cardiac, respiratory, GI, , musculoskeletal, constitutional, dermatological, hematological, psychiatric, throat, allergic symptom associated with present symptomatology. PAST MEDICAL HISTORY: Positive for Parkinson disease. SOCIAL HISTORY: She used to smoke, but does not smoke now. PHYSICAL EXAMINATION: GENERAL: The patient's examination indicates she is alert. She is responsive. Her speech looks intact. Memory and fund of knowledge is diminished, but that is her baseline. NEUROLOGIC: Cranial nerve examination 2-12 looks unremarkable. She does not have any diplopia today. Neuromuscular examination as checked for strength, sensation, reflexes and tone looks symmetrical. There is no meningeal sign. There is no carotid bruit. I could not look at the patient's fundus. CARDIAC: Unremarkable. RESPIRATORY: No respiratory difficulty was noticed. No vascular insufficiency was noticed clinically. VITAL SIGNS: Blood pressure is 123/85, respirations 17, pulse is 98, and temperature is 98.4. LABORATORY DATA: White count is 10.5, platelet count is slightly high at 541. She did have a CT scan of the head on admission and that was unremarkable. IMPRESSION AND PLAN: This patient has diplopia. She [place] [address] CONSULTATION Name: KAY SIFUENTES Room: [address]#: [id number] Admission: 10/14/19 Attend Phys: Komal Mcintyre MD Discharge: 10/16/19 Date of : 58 Report #: [id number] of head injury. She described that she has cyclic vomiting, which has been attributed to migraine. Because of that, will be desirable to make sure the episode was not posterior fossa transient ischemic attack and we will get an MRI and MRA done. We will give her an aspirin for the time being. As an outpatient, she will need myasthenia marker to make sure it was not early myasthenia gravis, we will also check a TSH for the same reason. We will follow up after this testing is done. They will make sure in Radiology to make sure there is no contraindication for MRI in this patient, although she said she had multiple MRIs. Thank you very much for this referral. <ELECTRONICALLY SIGNED> By: Noah Andrew MD 10/20/19 1336 1350 2038Noah Andrew MD /nt
== END 2019-10-16 17:57 | disposition home or self-care (01) | DRG 69 ==
LOC: M.ERS 20:12 → M.TBA-ER 22:04 → M.2W 22:04
PROVIDERS: Internal Medicine; Nurse Practitioner Family; ADMIT Internal Medicine
DX: G45.9 Transient cerebral ischemic attack, unspecified (principal); I10 Essential (primary) hypertension; E11.9 Type 2 diabetes mellitus without complications; E78.5 Hyperlipidemia, unspecified; G89.29 Other chronic pain; G20 Parkinson's disease; G43.909 Migraine, unspecified, not intractable, without status migrainosus; F41.8 Other specified anxiety disorders; E87.6 Hypokalemia; M54.2 Cervicalgia; I25.10 Atherosclerotic heart disease of native coronary artery without angina pectoris; Z90.49 Acquired absence of other specified parts of digestive tract; Z79.899 Other long term (current) drug therapy; Z87.891 Personal history of nicotine dependence; Z88.8 Allergy status to other drugs, medicaments and biological substances; Z82.49 Family history of ischemic heart disease and other diseases of the circulatory system; Z83.3 Family history of diabetes mellitus; Z81.8 Family history of other mental and behavioral disorders

== ENCOUNTER 2019-11-14 23:11 | Emergency (ER) | payer OTHER ==
[~2019-11-14] VITALS: Ht 157.5 cm; Wt 87.1 kg
[~2019-11-14 23:11] MED LIST changes: +ASA81BEC PO; +HYOSCYAMINE0.125 MG PO; +LIPITOR40 MG PO
[2019-11-15 00:35] VITALS: BP 132/82
== END 2019-11-15 00:35 | disposition home or self-care (01) ==
LOC: M.ERS 23:11
DX: H53.8 Other visual disturbances (principal); Z88.8 Allergy status to other drugs, medicaments and biological substances; I10 Essential (primary) hypertension; E11.9 Type 2 diabetes mellitus without complications; E78.5 Hyperlipidemia, unspecified; G89.29 Other chronic pain; Z90.49 Acquired absence of other specified parts of digestive tract; Z98.51 Tubal ligation status

== ENCOUNTER 2019-12-29 02:51 | Emergency (ER) | payer OTHER ==
[~2019-12-29] VITALS: Ht 157.5 cm; Wt 95.7 kg
[2019-12-29] MEDS ORDERED: KEFLEX500 M1 PO (05:05)
[2019-12-29] MEDS ORDERED: NORCO 5-325 TA1 EAC1 PO (05:05)
[2019-12-29 05:40] VITALS: BP 108/66
== END 2019-12-29 05:45 | disposition home or self-care (01) ==
LOC: M.ERS 02:51
DX: S01.81XA Laceration without foreign body of other part of head, initial encounter (principal); M79.642 Pain in left hand; M79.641 Pain in right hand; I10 Essential (primary) hypertension; E11.9 Type 2 diabetes mellitus without complications; E78.5 Hyperlipidemia, unspecified; F32.9 Major depressive disorder, single episode, unspecified; Z90.49 Acquired absence of other specified parts of digestive tract; Z98.51 Tubal ligation status; Z88.8 Allergy status to other drugs, medicaments and biological substances; W01.0XXA Fall on same level from slipping, tripping and stumbling without subsequent striking against object, initial encounter; Y93.89 Activity, other specified; Y92.89 Other specified places as the place of occurrence of the external cause; Y99.8 Other external cause status

== ENCOUNTER 2020-01-10 18:31 | Inpatient (IN) | payer OTHER ==
[~2020-01-10] VITALS: Ht 157.5 cm; Wt 95.7 kg
[~2020-01-10 18:31] MED LIST changes: +KEFLEX500 M1 PO; +NORCO 5-325 TA1 EAC1 PO
[2020-01-10 19:07] VITALS: BP 141/95
[2020-01-10] MEDS ORDERED: CRESTOR5 MG PO (19:11)
[2020-01-10] MEDS ORDERED: EFFER-K 10 MEQ10 ME1 PO (19:12)
[2020-01-10] MEDS ORDERED: D3-501250 MCG PO (19:13)
[2020-01-10] MEDS ORDERED: FISH OIL 1,0001 EAC9 PO (19:14)
[2020-01-10] MEDS ORDERED: COQ-10100 MG PO (19:14)
[2020-01-10 20:00] LABS: ABSOLUTE BASOPHILS 0.2 thou/uL (0.0-0.2); ABSOLUTE EOSINOPHILS 0.2 thou/uL (0.0-0.7); ABSOLUTE LYMPHOCYTES 4.1 thou/uL (0.8-5.3); ABSOLUTE MONOCYTES 1.7 thou/uL (0.0-1.2); ABSOLUTE NEUTROPHILS 11.7 thou/uL (1.6-8.1); BASOPHILS 1.2 %; EOSINOPHILS 0.9 %; HEMATOCRIT 47.5 % (37.0-47.0); HEMOGLOBIN 16.5 gm/dL (12.0-15.0); LYMPHOCYTES 22.9 %; MCH 29.8 pg (26.0-34.0); MCHC 34.8 g/dL (28.0-37.0); MCV 85.6 fL (80.0-100.0); MONOCYTES 9.5 %; MPV 7.2 fl. (7.2-11.1); NUCLEATED RBCS 0 /100WBC; PLATELET COUNT* 657 thou/uL (150-400); POLYS 65.5 %; RBC 5.54 mil/uL (4.20-5.00); RDW-CV 14.1 % (10.5-14.5); WBC 17.9 thou/uL (4.0-11.0)
[2020-01-10 20:06] LABS: CALCIUM 10.5 mg/dL (8.5-10.1); CREATININE 1.7 mg/dL (0.6-1.3); POTASSIUM 3.9 mmol/L (3.5-5.1)
[2020-01-10 20:10] LABS: ALBUMIN 4.5 g/dL (3.4-5.0); TOTAL BILIRUBIN 0.6 mg/dL (<0.1-1.0)
[2020-01-10 20:41] LABS: URINE BILIRUBIN NEGATIVE (Negative); URINE BLOOD NEGATIVE (Negative); URINE CLARITY CLEAR; URINE COLOR YELLOW; URINE GLUCOSE-RANDOM NEGATIVE (Negative); URINE KETONES NEGATIVE (Negative); URINE LEUKOCYTES TRACE (Negative); URINE NITRITE NEGATIVE (Negative); URINE PROTEIN NEGATIVE (Negative); URINE UROBILINOGEN 0.2 E.U./dl (0.2-1.0)
[2020-01-10 20:51] LABS: BACTERIA 1-9 Few /HPF (None Seen); CRYSTALS None Seen /LPF (None Seen); HYALINE CASTS 4-10 Moderate /LPF (None Seen); MUCUS 0-3 Light strn/LPF (None Seen); SQUAMOUS 0-3 Few /LPF (0-3); URINE RBC 0-2 Rare /HPF (0-2); URINE WBC 6-15 Few /HPF (0-5)
[2020-01-10 23:34] LABS: AMP/METHAMP Negative (Negative); BARBITURATES Negative (Negative); BENZODIAZEPINES Negative (Negative); COCAINE Negative (Negative); METHADONE Negative (Negative); OPIATES POSITIVE (Negative); PCP Negative (Negative); THC Negative (Negative)
[2020-01-10 23:49] VITALS: BP 154/74
[2020-01-11 00:15] VITALS: BP 146/98
[2020-01-11 04:50] VITALS: BP 138/89
[2020-01-11 09:00] VITALS: BP 125/75
[2020-01-11 09:33] LABS: ABSOLUTE BASOPHILS 0.1 thou/uL (0.0-0.2); ABSOLUTE EOSINOPHILS 0.2 thou/uL (0.0-0.7); ABSOLUTE LYMPHOCYTES 2.7 thou/uL (0.8-5.3); ABSOLUTE NEUTROPHILS 5.8 thou/uL (1.6-8.1); BASOPHILS 1.1 %; EOSINOPHILS 2.3 %; HEMATOCRIT 37.4 % (37.0-47.0); HEMOGLOBIN 12.7 gm/dL (12.0-15.0); LYMPHOCYTES 27.8 %; MCH 29.3 pg (26.0-34.0); MCV 86.3 fL (80.0-100.0); MONOCYTES 10.4 %; MPV 6.7 fl. (7.2-11.1); NUCLEATED RBCS 0 /100WBC; PLATELET COUNT* 456 thou/uL (150-400); POLYS 58.4 %; RBC 4.33 mil/uL (4.20-5.00); RDW-CV 14.1 % (10.5-14.5); WBC 9.9 thou/uL (4.0-11.0)
[2020-01-11 09:43] LABS: ALBUMIN 3.3 g/dL (3.4-5.0); CREATININE 1.1 mg/dL (0.6-1.3); TOTAL BILIRUBIN 0.6 mg/dL (<0.1-1.0); TOTAL PROTEIN 7.4 g/dL (6.4-8.2)
[2020-01-11 09:47] LABS: CALCIUM 8.2 mg/dL (8.5-10.1)
[2020-01-11 09:48] LABS: POTASSIUM 2.9 mmol/L (3.5-5.1)
--- NOTE | 2020-01-11 09:53 | EKG ---
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1960 Requested By: Nayeli Choudhary Order Number: [id number] MD: Leonard Arriaga Measurements Intervals [place] Rate: 114 P: 39 MN: 155 QRS: 20 QRSD: 81 T: 26 QT: 331 QTc: 456 Interpretive Statements Sinus tachycardia LAE, consider biatrial enlargement Borderline low voltage, extremity leads Consider anterior infarct Baseline wander in lead(s) V3,V4,V5,V6 Compared to ECG 10/14/2019 20:44:09 ST (T wave) deviation no longer present Electronically Signed On 01-11-2020 9:52:54 [employer] NETWORK ANALYST by Leonard Arriaga [email or web address] <ELECTRONICALLY SIGNED> By: Leonard Arriaga MD, [facility] 01/11/20 0952 1950 1950 Leonard Arriaga MD, [facility] /EPI
[2020-01-11 15:54] VITALS: BP 135/92
[2020-01-11 21:40] VITALS: BP 147/93
[2020-01-12 03:17] LABS: ABSOLUTE BASOPHILS 0.1 thou/uL (0.0-0.2); ABSOLUTE EOSINOPHILS 0.3 thou/uL (0.0-0.7); ABSOLUTE LYMPHOCYTES 3.1 thou/uL (0.8-5.3); ABSOLUTE MONOCYTES 0.6 thou/uL (0.0-1.2); ABSOLUTE NEUTROPHILS 2.6 thou/uL (1.6-8.1); BASOPHILS 1.2 %; EOSINOPHILS 4.4 %; HEMATOCRIT 37.1 % (37.0-47.0); HEMOGLOBIN 12.5 gm/dL (12.0-15.0); LYMPHOCYTES 46.5 %; MCH 29.3 pg (26.0-34.0); MCHC 33.6 g/dL (28.0-37.0); MCV 87.2 fL (80.0-100.0); MONOCYTES 8.7 %; NUCLEATED RBCS 0 /100WBC; PLATELET COUNT* 421 thou/uL (150-400); POLYS 39.2 %; RBC 4.26 mil/uL (4.20-5.00); RDW-CV 14.3 % (10.5-14.5); WBC 6.7 thou/uL (4.0-11.0)
[2020-01-12 03:50] LABS: CALCIUM 8.4 mg/dL (8.5-10.1); CREATININE 0.8 mg/dL (0.6-1.3); POTASSIUM 3.7 mmol/L (3.5-5.1)
[2020-01-12 08:00] VITALS: BP 115/72; BP 140/88
[2020-01-12 14:52] VITALS: BP 140/88
[2020-01-13] MEDS ORDERED: HALDOL 0.5 MG0.5 MG PO (07:01)
== END 2020-01-12 18:26 | disposition home or self-care (01) | DRG 393 ==
LOC: M.ERS 18:31 → M.TBA-ER 23:21 → M.ORTHSURG 23:21
PROVIDERS: Internal Medicine; Physician Assistant; ADMIT Family Medicine
DX: R11.15 Cyclical vomiting syndrome unrelated to migraine (principal); R65.11 Systemic inflammatory response syndrome (SIRS) of non-infectious origin with acute organ dysfunction; N17.9 Acute kidney failure, unspecified; N39.0 Urinary tract infection, site not specified; E87.2 Acidosis; R10.13 Epigastric pain; R19.7 Diarrhea, unspecified; F32.9 Major depressive disorder, single episode, unspecified; I10 Essential (primary) hypertension; E11.9 Type 2 diabetes mellitus without complications; E78.5 Hyperlipidemia, unspecified; E83.52 Hypercalcemia; E86.0 Dehydration; M54.2 Cervicalgia; Z90.49 Acquired absence of other specified parts of digestive tract; Z79.82 Long term (current) use of aspirin; Z79.84 Long term (current) use of oral hypoglycemic drugs; Z79.899 Other long term (current) drug therapy; Z88.8 Allergy status to other drugs, medicaments and biological substances

== ENCOUNTER 2020-01-13 03:39 | Emergency (ER) | payer OTHER ==
[~2020-01-13] VITALS: Ht 157.5 cm; Wt 90.7 kg
[~2020-01-13 03:39] MED LIST changes: +COQ-10100 MG PO; +CRESTOR5 MG PO; +D3-501250 MCG PO; +EFFER-K 10 MEQ10 ME1 PO; +FISH OIL 1,0001 EAC9 PO
[2020-01-13 05:38] LABS: ABSOLUTE BASOPHILS 0.1 thou/uL (0.0-0.2); ABSOLUTE EOSINOPHILS 0.3 thou/uL (0.0-0.7); ABSOLUTE LYMPHOCYTES 2.8 thou/uL (0.8-5.3); ABSOLUTE MONOCYTES 1.1 thou/uL (0.0-1.2); ABSOLUTE NEUTROPHILS 8.6 thou/uL (1.6-8.1); BASOPHILS 1.1 %; EOSINOPHILS 2.1 %; HEMATOCRIT 38.4 % (37.0-47.0); HEMOGLOBIN 13.2 gm/dL (12.0-15.0); LYMPHOCYTES 21.7 %; MCH 29.8 pg (26.0-34.0); MCHC 34.5 g/dL (28.0-37.0); MCV 86.4 fL (80.0-100.0); MONOCYTES 8.7 %; MPV 6.7 fl. (7.2-11.1); NUCLEATED RBCS 0 /100WBC; POLYS 66.4 %; RBC 4.44 mil/uL (4.20-5.00)
[2020-01-13 05:39] LABS: PLATELET COUNT* 550 thou/uL (150-400)
[2020-01-13 05:48] LABS: CALCIUM 9.5 mg/dL (8.5-10.1); CREATININE 1.1 mg/dL (0.6-1.3); POTASSIUM 3.3 mmol/L (3.5-5.1)
[2020-01-13 05:52] LABS: ALBUMIN 4.2 g/dL (3.4-5.0); TOTAL BILIRUBIN 0.4 mg/dL (<0.1-1.0); TOTAL PROTEIN 8.6 g/dL (6.4-8.2)
[2020-01-13 06:22] LABS: URINE BILIRUBIN NEGATIVE (Negative); URINE BLOOD 2+ (Negative); URINE CLARITY CLEAR; URINE COLOR YELLOW; URINE GLUCOSE-RANDOM NEGATIVE (Negative); URINE KETONES NEGATIVE (Negative); URINE NITRITE-REFLEX NEGATIVE (Negative); URINE PROTEIN NEGATIVE (Negative); URINE UROBILINOGEN 0.2 E.U./dl (0.2-1.0)
[2020-01-13 06:40] LABS: URINE LEUKOCYTES-REFLEX 2+ (Negative)
[2020-01-13 06:44] LABS: BACTERIA-REFLEX 1-9 Few /HPF (None Seen); CASTS None Seen /LPF (None Seen); CRYSTALS None Seen /LPF (None Seen); SQUAMOUS 0-3 Few /LPF (0-3); URINE RBC 0-2 Rare /HPF (0-2); URINE WBC-REFLEX 0-5 Rare /HPF (0-5)
[2020-01-13] MEDS ORDERED: HALDOL 0.5 MG0.5 MG PO (07:01)
[2020-01-13 07:28] VITALS: BP 156/83
[2020-01-13 07:30] LABS: AMP/METHAMP Negative (Negative); BARBITURATES Negative (Negative); BENZODIAZEPINES Negative (Negative); COCAINE Negative (Negative); METHADONE Negative (Negative); OPIATES Negative (Negative); PCP Negative (Negative); THC Negative (Negative)
--- NOTE | 2020-01-19 14:59 | EKG ---
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 : 1960 Requested By: Marisa Sharma Order Number: [id number] MD: Leonard Arriaga Measurements Intervals [place] Rate: 115 P: 41 DE: 179 QRS: 28 QRSD: 87 T: 9 QT: 323 QTc: 447 Interpretive Statements Sinus tachycardia Left atrial enlargement Consider anterior infarct Compared to ECG 01/10/2020 19:50:24 No significant changes Electronically Signed On 01-13-2020 12:56:55 MARRIAGE THERAPIST by Leonard Arriaga [email or web address] <ELECTRONICALLY SIGNED> By: Leonard Arriaga MD, [facility] 01/13/20 1256 0351 0351 Leonard Arriaga MD, [facility] /EPI
== END 2020-01-13 07:29 | disposition home or self-care (01) ==
LOC: M.ERS 03:39
PROVIDERS: Personal Emergency Response Attendant
DX: G25.81 Restless legs syndrome (principal); R11.2 Nausea with vomiting, unspecified; I10 Essential (primary) hypertension; E11.9 Type 2 diabetes mellitus without complications; E78.5 Hyperlipidemia, unspecified; M54.2 Cervicalgia; G89.29 Other chronic pain; F32.9 Major depressive disorder, single episode, unspecified; Z90.49 Acquired absence of other specified parts of digestive tract; Z98.51 Tubal ligation status; Z88.8 Allergy status to other drugs, medicaments and biological substances

== ENCOUNTER 2020-06-17 17:14 | Observation (INO) | payer OTHER ==
[~2020-06-17] VITALS: Ht 157.5 cm; Wt 99.8 kg
[~2020-06-17 17:14] MED LIST changes: +HALDOL 0.5 MG0.5 MG PO
[2020-06-17 17:23] VITALS: BP 105/67
[2020-06-17 18:10] LABS: ABSOLUTE BASOPHILS 0.1 thou/uL (0.0-0.2); ABSOLUTE EOSINOPHILS 0.6 thou/uL (0.0-0.7); ABSOLUTE LYMPHOCYTES 2.6 thou/uL (0.8-5.3); ABSOLUTE MONOCYTES 0.9 thou/uL (0.0-1.2); ABSOLUTE NEUTROPHILS 4.1 thou/uL (1.6-8.1); EOSINOPHILS 7.2 %; HEMATOCRIT 34.8 % (37.0-47.0); HEMOGLOBIN 12.2 gm/dL (12.0-15.0); LYMPHOCYTES 31.1 %; MCH 30.1 pg (26.0-34.0); MONOCYTES 10.7 %; NUCLEATED RBCS 0 /100WBC; PLATELET COUNT* 400 thou/uL (150-400); RBC 4.05 mil/uL (4.20-5.00); RDW-CV 13.9 % (10.5-14.5); WBC 8.2 thou/uL (4.0-11.0)
[2020-06-17 18:20] LABS: CALCIUM 8.2 mg/dL (8.5-10.1); CREATININE 2.7 mg/dL (0.6-1.3); POTASSIUM 3.7 mmol/L (3.5-5.1)
[2020-06-17 18:21] LABS: PROTIME 10.7 Seconds (9.20-11.50)
[2020-06-17 18:30] LABS: ALBUMIN 3.7 g/dL (3.4-5.0); TOTAL BILIRUBIN 0.5 mg/dL (<0.1-1.0); TOTAL PROTEIN 7.8 g/dL (6.4-8.2)
--- NOTE | 2020-06-17 19:29 | NUR ---
RECIEVED REPORT AND ASSUMED CARE OF PT. PT BOARDING IN ED.
[2020-06-17 19:30] VITALS: BP 120/68
[2020-06-17 23:30] VITALS: BP 120/72
[2020-06-18 04:00] VITALS: BP 132/80
[2020-06-18] MEDS ORDERED: ASA81BEC PO (08:22)
[2020-06-18 08:42] LABS: CALCIUM 9.1 mg/dL (8.5-10.1); MAGNESIUM 1.5 mg/dL (1.8-2.4); POTASSIUM 3.4 mmol/L (3.5-5.1)
[2020-06-18 08:43] LABS: CREATININE 1.7 mg/dL (0.6-1.3)
[2020-06-18 09:02] VITALS: BP 115/87
[2020-06-18 09:33] LABS: CHOLESTEROL 105 mg/dL (<200); HDL CHOLESTEROL 51 mg/dL (>40); LDL CHOLESTEROL 17 mg/dL (<100); SERUM ASSESSMENT Clear; TC:HDL 2.1 Ratio (Not establshd); TRIGLYCERIDE 185 mg/dL (<150); VLDL 37 mg/dL (<40)
[2020-06-18 10:26] VITALS: BP 135/75
[2020-06-18 10:27] VITALS: BP 135/75
[2020-06-18 10:45] VITALS: BP 135/75
--- NOTE | 2020-06-18 13:17 | EKG ---
[place] [address] ELECTROCARDIOGRAM REPORT Name: KAY SIFUENTES Room: [address] M.R.#: [id number] Admission: 06/17/20 Attend Phys: Bony Mckinley, Discharge: Date of : 58 Date of Service: 06/17/20 1718 Report #: [id number] THIS REPORT FOR: //name// [facility] ED Test Date: 2020-06-17 Test Time: 17:18:37 Pat Name: KAY SIFUENTES Department: Room: 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: : 1960 Requested By: Marisa Sharma Order Number: [id number] MD: Juawn Alcala Measurements Intervals [place] Rate: 75 P: 42 NM: 175 QRS: 19 QRSD: 96 T: 16 QT: 425 QTc: 475 Interpretive Statements Sinus rhythm Probable left atrial enlargement Baseline wander in lead(s) V2,V3 Compared to ECG 01/13/2020 03:51:32 Sinus tachycardia no longer present Myocardial infarct finding no longer present Electronically Signed On 06-18-2020 13:17:22 CDT by Juwan Alcala [email or web address] <ELECTRONICALLY SIGNED> By: Juwan Alcala MD, FACC 06/18/20 1317 1718 1718 Juwan Alcala MD, FAC /EPI
== END 2020-06-18 10:50 | disposition home or self-care (01) ==
LOC: M.ERS 17:14 → M.TBA-ER 18:56
PROVIDERS: Personal Emergency Response Attendant; ADMIT Internal Medicine; ATTEND Internal Medicine
DX: Z03.818 Encounter for observation for suspected exposure to other biological agents ruled out (principal); R07.89 Other chest pain; I12.9 Hypertensive chronic kidney disease with stage 1 through stage 4 chronic kidney disease, or unspecified chronic kidney disease; E11.22 Type 2 diabetes mellitus with diabetic chronic kidney disease; N18.3 Chronic kidney disease, stage 3 (moderate); N17.9 Acute kidney failure, unspecified; G89.29 Other chronic pain; F11.20 Opioid dependence, uncomplicated; F32.9 Major depressive disorder, single episode, unspecified; E78.5 Hyperlipidemia, unspecified; E66.01 Morbid (severe) obesity due to excess calories; K21.9 Gastro-esophageal reflux disease without esophagitis; Z68.41 Body mass index [BMI] 40.0-44.9, adult; Z87.891 Personal history of nicotine dependence; Z79.84 Long term (current) use of oral hypoglycemic drugs; Z79.899 Other long term (current) drug therapy; Z79.82 Long term (current) use of aspirin

== ENCOUNTER 2021-01-07 18:53 | Emergency (ER) | payer OTHER ==
[~2021-01-07] VITALS: Ht 157.5 cm; Wt 97.1 kg
[2021-01-07 19:52] LABS: URINE BILIRUBIN NEGATIVE (Negative); URINE BLOOD 3+ (Negative); URINE CLARITY CLOUDY; URINE COLOR YELLOW; URINE GLUCOSE-RANDOM NEGATIVE (Negative); URINE KETONES NEGATIVE (Negative); URINE LEUKOCYTES-REFLEX 1+ (Negative); URINE NITRITE-REFLEX NEGATIVE (Negative); URINE PROTEIN 2+ (Negative); URINE SPECIFIC GRAVITY >= 1.030 (1.005-1.030); URINE UROBILINOGEN 0.2 E.U./dl (0.2-1.0)
[2021-01-07 20:02] LABS: HEMATOCRIT 47.3 % (37.0-47.0); HEMOGLOBIN 15.9 gm/dL (12.0-15.0); MCH 29.1 pg (26.0-34.0); MCHC 33.7 g/dL (28.0-37.0); MCV 86.4 fL (80.0-100.0); RBC 5.47 mil/uL (4.20-5.00); RDW-CV 14.6 % (10.5-14.5); WBC 14.2 thou/uL (4.0-11.0)
[2021-01-07 20:02] LABS: AMP/METHAMP Negative (Negative); BARBITURATES Negative (Negative); BENZODIAZEPINES Negative (Negative); COCAINE Negative (Negative); METHADONE Negative (Negative); OPIATES Negative (Negative); PCP Negative (Negative); THC Negative (Negative)
[2021-01-07 20:03] LABS: BACTERIA-REFLEX >30 Many /HPF (None Seen); SQUAMOUS 4-10 Moderate /LPF (0-3); URINE RBC >20 Many /HPF (0-2); URINE WBC-REFLEX >25 Many /HPF (0-5); WBC CLUMPS Moderate (None Seen)
[2021-01-07 20:04] LABS: CASTS None Seen /LPF (None Seen); CRYSTALS None Seen /LPF (None Seen)
[2021-01-07 20:13] LABS: CALCIUM 10.3 mg/dL (8.5-10.1); CREATININE 1.2 mg/dL (0.6-1.3); POTASSIUM 3.5 mmol/L (3.5-5.1)
[2021-01-07 20:18] LABS: ALBUMIN 4.5 g/dL (3.4-5.0); TOTAL BILIRUBIN 0.5 mg/dL (<0.1-1.0); TOTAL PROTEIN 9.6 g/dL (6.4-8.2)
[2021-01-07] MEDS ORDERED: KEFLEX500 M1 PO (20:39)
[2021-01-07 21:12] VITALS: BP 169/82
== END 2021-01-07 21:12 | disposition home or self-care (01) ==
LOC: M.ERS 18:53
PROVIDERS: Personal Emergency Response Attendant
DX: N39.0 Urinary tract infection, site not specified (principal); N20.0 Calculus of kidney; I10 Essential (primary) hypertension; E11.9 Type 2 diabetes mellitus without complications; G89.29 Other chronic pain; E78.5 Hyperlipidemia, unspecified; Z88.8 Allergy status to other drugs, medicaments and biological substances; Z90.49 Acquired absence of other specified parts of digestive tract; Z98.51 Tubal ligation status; Z79.899 Other long term (current) drug therapy